=== PATIENT | female | born 1965 | race Caucasian/White ===

== ENCOUNTER 2017-04-03 17:32 | Inpatient (IN) | payer SELFPAY ==
[~2017-04-03 17:32] MED LIST: ISOVUE-370 76%-LOCM 1 ML ONE
[2017-04-03 18:23] LABS: INR-International Normal Ratio 1.2; Prothrombin Time 15.6 SEC (12.0-14.7)
[2017-04-03 18:24] LABS: PTT 43.7 SEC (22.9-36.1)
[2017-04-03 18:25] LABS: D-Dimer Test 1.6 *mcg/mL (0.27-0.43); Hemoglobin 14.2 g/dL (12.0-16.0); Mean Corpuscular Hemoglobin 34.3 pg (27.0-31.0); RBC Distribution Width 11.1 % (11.5-14.5); Red Blood Cell (RBC) Count 4.13 mill/uL (4.20-5.40); White Blood Cell (WBC) Count 10.1 thou/uL (4.8-10.8)
[2017-04-03 18:40] LABS: Band 43 % (5-11); Lymphocytes 2 % (21-51); MDiff Complete? YES; Mean Platelet Volume 8.1 fL (7.4-10.4); Metamyelocyte 1 % (0-0); Monocytes 2 % (0-10); Neutrophil 52 % (42-75); PLT Morphology Comment Appears Decreased; Platelet Count 111 thou/uL (130-400)
[2017-04-03 18:43] LABS: CKMB 0.7 ng/mL (0-6.6); Troponin I Less than 0.010 ng/mL (< 0.028)
[2017-04-03] MEDS ORDERED: Ondansetron HCl/PF 4 MG/2 ML Vial ONE (18:43)
[2017-04-03 18:58] LABS: ALT (SGPT) 41 U/L (8-55); AST (SGOT) 59 U/L (5-34); Albumin 4.1 g/dL (3.5-5.0); Alkaline Phosphatase 71 U/L (40-150); Anion Gap 17 mmol/L (10-20); BUN (Urea Nitrogen) 21 mg/dL (9.8-20.1); Bilirubin, Total 0.6 mg/dL (0.2-1.2); CK (CPK) 68 U/L (29-168); Calc. Creatinine Clearance 0 mL/min (70-130); Calcium 8.4 mg/dL (7.8-10.44); Carbon Dioxide 15 mmol/L (22-29); Chloride 100 mmol/L (98-107); Estimated GFR-MDRD 44; Globulin 2.9 g/dL (2.4-3.5); Glucose 144 mg/dL (70-105); Lipase 8 U/L (8-78); Magnesium 1.5 mg/dL (1.6-2.6); Potassium 3.1 mmol/L (3.5-5.1); Sodium 129 mmol/L (136-145)
--- NOTE | 2017-04-03 19:00 | RAD ---
PORTABLE CHEST ONE VIEW 04/03/17 at 6:46 p.m. HISTORY: Cough, fever, chest pain. FINDINGS: The heart size is normal. There is patchy air space disease in the left mid lung. No pneumothoraces o r pleural effusions are seen. IMPRESSION: Left sided pneumonia. RECOMMENDATION: A followup exam should be obtained after a course of antibiotics to exclude underlying mass. Code T POS: [facility]
[2017-04-03] MEDS ORDERED: Fentanyl 100 MCG/2 ML VIAL ONE ×2 (19:03→21:34)
[2017-04-03] MEDS ORDERED: Digoxin 0.5 MG/2 ML AMP ONE (19:31)
[2017-04-03] MEDS ORDERED: Magnesium Sulfate 2 GM/100 ML BAG ONE (19:41)
[2017-04-03] MEDS ORDERED: Phenylephrine 10 MG/NS 250 ML 250 ML ONE (20:03)
--- NOTE | 2017-04-03 21:29 | CT ---
CT PULMONARY ANGIOGRAM WITH IV CONTRAST AND 3D POSTPROCESSIN04/03/17 HISTORY: Cough, fever, chest pain. FINDINGS: There is good, vascular calcifications of the pulmonary artery vasculature without filling defects to suggest thromboembolism. The thoracic aorta is well opacified without aneurysmal dissection. No pleu ral or pericardial effusions are seen. There are patchy areas of consolidation in the left lower lobe . A 5 mm nodule is seen in the posterior segment of the right upper lobe. IMPRESSION: 1. No CT evidence of pulmonary embolism. 2. Left lower lobe pneumonia. 3. 5 mm right upper lobe nodule. RECOMMENDATION: A followup CT scan of the chest is recommended in three months. Discussed over the telephone with the ER physician, Dr. West Murillo at 8:46 p.m. POS: [facility]
[2017-04-03 21:41] LABS: Bilirubin Negative (Negative); Blood, Urine Negative (Negative); Clarity TURBID (Clear); Glucose, Urine (Dipstick) Negative (Negative); Leukocyte Small (Negative); Nitrite Negative (Negative); Protein, Urine (Dipstick) 30 mg/dL (Neg-Trace); Urobilinogen 0.2 mg/dL (0.2-1.0); pH, Urine 5.5 (5.0-9.0)
[2017-04-03 21:43] LABS: Pathc Cast-AUWi Flag 1.08 (0-2.49)
[2017-04-03 21:53] LABS: Bacteria/HPF 2+ HPF (None Seen); Hyaline Casts/LPF 0-3 HYALINE CAST LPF (0-3 Hyaline); Yeast-All Forms None Seen HPF (None Seen)
[2017-04-03 21:54] LABS: Amphetamine Not Detected (NotDetected); Barbiturates Screen Not Detected (NotDetected); Benzodiazepine Screen Not Detected (NotDetected); Cocaine Metabolite Screen Not Detected (NotDetected); Medtox Control Line Valid? VALID (VALID); Medtox Reader # READER 1; Methadone Not Detected (NotDetected); Methamphetamine Not Detected (NotDetected); Opiate Screen Not Detected (NotDetected); Oxycodone Screen Not Detected (NotDetected); Phencyclidine (PCP) Not Detected (NotDetected); THC/Cannabinoid Screen Not Detected (NotDetected); Tricyclic Screen Not Detected (NotDetected)
[2017-04-03] MEDS ORDERED: Oseltamivir 75 MG CAP PO SCH (22:00)
[2017-04-03] MEDS ORDERED: Piperacillin-Tazo-Dextrose,Iso 3.375 GM in Premix Bag 1 BAG IVPB SCH (22:15)
--- NOTE | 2017-04-03 22:56 | RAD ---
PORTABLE CHEST ONE VIEW 04/03/17 at 10 p.m. HISTORY: Pneumonia, central line placement. FINDINGS/IMPRESSION: There is a right internal jugular central line with tip in the projection of the SVC. No pneumothorax is seen. The heart size is normal. There is consolidation in the left lower lobe consistent with pne umonia. POS: [facility]
[2017-04-03] MEDS ORDERED: Norepinephrine 8 MG/0.9% NS 250 ML ONE (23:05)
[2017-04-03 23:31] LABS: Troponin I 0.016 ng/mL (< 0.028)
[2017-04-03] MEDS ORDERED: Acetaminophen 500 MG TAB ONE (23:49)
[2017-04-04] MEDS ORDERED: Bisacodyl 5 MG TAB PO PRN (00:14)
[2017-04-04] MEDS ORDERED: hydrALAZINE 20 MG/ML VIAL SLOW IVP PRN (00:14)
[2017-04-04] MEDS ORDERED: Lacri-Lube Opth Oint 3.5 GM TUBE EA EYE PRN (00:14)
[2017-04-04] MEDS ORDERED: Norepinephrine 8 MG/0.9% NS 250 ML IVPB PRN (00:14)
[2017-04-04] MEDS ORDERED: CCU Electrolyte Replacement 1 EACH IVPB ONE (00:14)
[2017-04-04] MEDS ORDERED: CCU Electrolyte Replacement 1 EACH FS ONE (00:14)
[2017-04-04] MEDS ORDERED: Nitroglycerin 0.4 MG TAB (25 Tab Bottle) SL PRN (00:14)
[2017-04-04] MEDS ORDERED: Loratadine 10 MG TAB PO PRN (00:14)
[2017-04-04] MEDS ORDERED: Mag-Al 1200 mg/1200 mg/30 ML UDCUP PO PRN (00:14)
[2017-04-04] MEDS ORDERED: cloNIDine 0.1 MG TAB PO PRN (00:14)
[2017-04-04] MEDS ORDERED: Potassium Chloride 40 MEQ in Sodium Chloride 0.9% 250 ML 250 ML IVPB PRN (00:22)
[2017-04-04] MEDS ORDERED: Potassium Phosphate 15 MMOL in Sodium Chloride 0.9% 250 ML 250 ML IV PRN (00:22)
[2017-04-04] MEDS ORDERED: CCU ELECTROLYTE REPLACEMENT PROTOCOL FS PRN (00:22)
[2017-04-04] MEDS ORDERED: Potassium Phosphate 9 MMOL in Sodium Chloride 0.9% 100 ML IVPB PRN (00:22)
[2017-04-04] MEDS ORDERED: Potassium Phosphate 12 MMOL in Sodium Chloride 0.9% 250 ML 250 ML IV PRN (00:22)
[2017-04-04] MEDS ORDERED: Magnesium 2 GM/NS 0.9% 100 ML 2 GM in Premix Bag 1 BAG IVPB PRN (00:22)
[2017-04-04] MEDS ORDERED: Potassium Chloride 40 MEQ in Premix Bag 1 BAG IVPB PRN (00:22)
[2017-04-04] MEDS ORDERED: Magnesium Oxide 400 MG TAB PO PRN ×2 (00:22)
[2017-04-04] MEDS: Ondansetron HCl/PF 4 MG/2 ML Vial IVP PRN (01:10)
[2017-04-04] MEDS: Ibuprofen 200 MG TAB PO PRN ×2 (01:37→09:48)
[2017-04-04] MEDS: Sodium Chloride 0.9% 1,000 ML IV SCH ×2 (02:09→11:38)
[2017-04-04] MEDS: traMADol HCl 50 MG TAB PO PRN ×3 (02:26→13:56)
[2017-04-04 03:34] LABS: Band 60 % (5-11); Hemoglobin 10.7 g/dL (12.0-16.0); Lymphocytes 1 % (21-51); MDiff Complete? YES; Mean Corpuscular HGB CONC 34.9 g/dL (32.0-36.0); Mean Corpuscular Hemoglobin 35.4 pg (27.0-31.0); Mean Platelet Volume 8.1 fL (7.4-10.4); Metamyelocyte 1 % (0-0); Monocytes 2 % (0-10); Neutrophil 35 % (42-75); Platelet Count 84 thou/uL (130-400); Reactive Lymphocytes 1 % (0-10); Red Blood Cell (RBC) Count 3.04 mill/uL (4.20-5.40)
[2017-04-04 03:52] LABS: Troponin I 0.028 ng/mL (< 0.028)
[2017-04-04 03:55] LABS: ALT (SGPT) 38 U/L (8-55); AST (SGOT) 56 U/L (5-34); Albumin 2.7 g/dL (3.5-5.0); Alkaline Phosphatase 47 U/L (40-150); Anion Gap 11 mmol/L (10-20); BUN (Urea Nitrogen) 15 mg/dL (9.8-20.1); Bilirubin, Total 0.8 mg/dL (0.2-1.2); Calc. Creatinine Clearance 60 mL/min (70-130); Calcium 6.9 mg/dL (7.8-10.44); Carbon Dioxide 13 mmol/L (22-29); Chloride 111 mmol/L (98-107); Estimated GFR-MDRD 71; Globulin 1.9 g/dL (2.4-3.5); Glucose 131 mg/dL (70-105); Potassium 2.7 mmol/L (3.5-5.1); Protein, Total 4.6 g/dL (6.0-8.3); Sodium 132 mmol/L (136-145)
--- NOTE | 2017-04-04 04:08 | HP ---
DATE OF ADMISSION: 04/03/2017 PRIMARY CARE PHYSICIAN: Out of town. CHIEF COMPLAINT: Shortness of breath, cough, fever, and palpitations. HISTORY OF PRESENT ILLNESS: Ms. Arevalo is a 52-year-old female with past medical history of seizure disorder, who presented to the emergency room with the above-mentioned complaint. History is mainly obtained by the patient herself who is a rather poor historian, is also having some nausea and is dif ficult to provide much history. Nevertheless, the patient presented to the ER for complaints of flu-like symptoms for the last few da ys. She started to have fever, chills, and cough at home. She had [place] [facility] [place] She started to have shortness of breath and palpitations yesterday, so decided to come to the ER . In the emergency room upon presentation, she was found to be in tachycardia with pulse of 156. EKG c onfirmed atrial flutter. ER physician decided to cardiovert her and she got total of 4 shocks in the emergency room, which did not help with her atrial flutter. Eventually, she received Cardizem and d igoxin, which helped convert her to sinus tachycardia. She had become hypotensive after the Cardizem and remained hypotensive despite multiple IV fluid boluses. Further evaluation included a chest x-ray which showed left-sided pneumonia. Because of presentation with dyspnea and tachycardia, she had a D-Dimer drawn, which was elevated. This prompted a CT angio , which was done and was negative for pulmonary embolism. It was also consistent with left lower lob e pneumonia. She then received multiple broad-spectrum IV antibiotics as well as Tamiflu. After sta bilization, she is being admitted to the critical care unit for septic shock and new onset of atrial flutter. A central line has been placed by the emergency room physician. PAST MEDICAL HISTORY: Grand mal seizures. PAST SURGICAL HISTORY: section. PSYCHIATRIC HISTORY: Anxiety. SOCIAL HISTORY: Smokes 3-4 cigarettes daily. No history of drug, tobacco, or alcohol use currently. She has history of cocaine abuse in the past, none currently. FAMILY HISTORY: Significant for coronary artery disease in her father and grandparents. One of her grandparents also had throat cancer. PSYCHIATRIC HISTORY: Anxiety. ALLERGIES: SULFONAMIDES. CURRENT MEDICATIONS: Dexilant 60 mg daily and Topamax 200 mg p.o. b.i.d. REVIEW OF SYSTEMS: The following complete review of systems was negative, except for those mentioned in the history and physical: Constitutional: Weight loss or gain, ability to conduct usual activities. Skin: Rash, itching. Eyes: Double vision, pain. ENT/Mouth: Nose bleeding, neck stiffness, pain, tenderness. Cardiovascular: Palpitations, dyspnea on exertion, orthopnea. Respiratory: Shortness of breath, wheezing, cough, hemoptysis, fever, or night sweats. Gastrointestinal: Poor appetite, abdominal pain, heartburn, nausea, vomiting, constipation, or diarr hea. Genitourinary: Urgency, frequency, dysuria, nocturia. Musculoskeletal: Pain, swelling. Neurologic/Psychiatric: Anxiety, depression. Allergy/Immunologic: Skin rash, bleeding tendency. PHYSICAL EXAMINATION: VITAL SIGNS: Most recent vital signs pulse of 112, respirations 20, saturating 96% on room air, bloo d pressure upon presentation of 104/83, temperature 98. GENERAL: The patient appears uncomfortable and gets easily winded with conversation. She is nauseou s and dry heaving as well as coughing. HEENT: Mucous membrane is moist and pink. No oropharyngeal exudate or erythema. Head is normocepha lic, atraumatic. Pupils are equal, reactive to light and accommodation. Extraocular movements intac t. NECK: Supple without any lymphadenopathy, JVD, or bruit. CHEST: Evaluation showed coarse breath sounds at bases without any significant wheezes or crackles. Breath sounds are somewhat diminished on the left base. CARDIOVASCULAR: Rate and rhythm is tachycardic and regular without any significant murmurs. ABDOMEN: Soft, nontender, nondistended with positive bowel sounds. EXTREMITIES: Free of any cyanosis, clubbing, or edema. NEUROLOGIC: Nonfocal. SKIN: Free of any rashes or bruises, feel warm and dry to touch. PSYCHIATRIC: Some anxiety noticed. LABORATORY DATA: A 12-lead EKG by my review shows atrial flutter with variable AV block at heart rat e of 167 beats per minute. Chest x-ray by my review shows left-sided pneumonia. CT scan of the ches t with angiogram is negative for any pulmonary embolism. She has a 5-mm right upper lobe nodule and left lower lobe pneumonia. CBC shows WBCs 10.1 with 43% bands, hemoglobin and hematocrit are stable, platelet count of 111. D-Dimer 1.60. Serum chemistries show sodium of 129, potassium 3.1, bicarbon ate 15, BUN 21, creatinine 1.28, magnesium 1.5. Lactic acid 1.4. BNP 110. Cardiac enzymes, troponi n less than 0.010 with normal CK-MB. TSH elevated at 7.6. Urinalysis showed 30+ protein, small leuk ocyte esterase, wbcs, and +2 bacteria. Urine drug screen is negative. IMPRESSION AND PLAN: 1. Septic shock. The patient will be admitted to the critical care unit with sepsis protocol. She will be continued on IV fluids and broad-spectrum IV antibiotics, namely vancomycin, Zosyn, and levof loxacin. We will consult Pulmonary Critical Care medicine for further evaluation. Urine culture and blood cultures have been drawn and we will follow the results. Respiratory viral pathogen has been sent. She will be empirically covered with Tamiflu b.i.d. for now. Strict I's and O's will be monit ored. We will provide her with Levophed as needed to keep MAP above 65. 2. New onset of atrial flutter with rapid ventricular response. This is likely secondary to ongoing severe sepsis. The patient has sinus tachycardia now. They will obtain a transthoracic echocardiog elissa and consult Cardiology in the morning. We will start her on calcium-channel xavier orally for n ow and hold if her blood pressure tends to lower with Cardizem. 3. Sepsis likely secondary to pneumonia. She also seems to have a urinary tract infection. We will continue empiric broad-spectrum IV antibiotic and follow the culture results. 4. Hyponatremia likely secondary to dehydration from ongoing sepsis. She will be gently resuscitate d with IV fluids. 5. Non-anion gap metabolic acidosis secondary to dehydration and sepsis. We will continue IV fluids and recheck labs in the morning. 6. Acute renal insufficiency once again secondary to sepsis. We will continue her on intravenous fl uids and recheck in the morning. Avoid any nephrotoxic medications. 7. Hypomagnesemia. We will replace and recheck. 8. Hypokalemia. We will replace and recheck per the CCU protocol. 9. Respiratory distress secondary to pneumonia. Continue nebulizers and oxygen as needed. Add Muci nex and incentive spirometry as well. Continue symptomatic and supportive care. 10. History of seizure disorder. We will restart her Topamax for now. She is currently seizure leticia e. 11. Deep venous thrombosis and gastrointestinal prophylaxis. 12. Code status: FULL CODE. Discussed with the patient. DISPOSITION: Ms. Arevalo is currently being admitted to critical care unit for severe sepsis due to p neumonia and possibly urinary tract infection and septic shock as well as atrial flutter with rapid v entricular response. She is currently critically ill. Total critical care time spent in the care of this patient is 40 minutes.
[2017-04-04] MEDS: Potassium Chloride 20 MEQ TAB PO PRN ×3 (04:17→09:03)
[2017-04-04] MEDS: Piperacillin/Tazobactam 4.5 GM in Sodium Chloride 0.9% 100 ML IVPB SCH ×4 (04:38→22:07)
[2017-04-04 06:30] LABS: Free T4 (Free Thyroxine) 1.12 ng/dL (0.70-1.48)
[2017-04-04] MEDS ORDERED: SUMAtriptan Succinate 50 MG TAB PO PRN (08:20)
[2017-04-04 08:55] LABS: Potassium 3.3 mmol/L (3.5-5.1)
[2017-04-04] MEDS ORDERED: Topiramate 100 MG TAB PO SCH ×2 (09:00→09:30)
[2017-04-04] MEDS: guaiFENesin ER 600 MG TAB PO SCH ×2 (09:02→20:25)
[2017-04-04] MEDS: Famotidine 20 MG TAB PO SCH ×2 (09:02→09:08)
[2017-04-04] MEDS: Oseltamivir 75 MG CAP PO SCH ×2 (09:03→20:25)
[2017-04-04] MEDS: Acetaminophen 325 MG/10.15 ML UDCUP PO PRN (09:48)
--- NOTE | 2017-04-04 10:14 | CON ---
DATE OF CONSULTATION: 04/04/2017 CONSULTING PHYSICIAN: Jada Strickland MD REASON FOR CONSULTATION: Septic shock. HISTORY OF PRESENT ILLNESS: This is a 52-year-old female, who has been sick since Sunday. She has had a headache, cough, and congestion. She presented to the ER last night with low blood pressure. She had atrial flutter and required for cardioversions. She required Levophed because of the hypote nsion. She was diagnosed with left lower lobe pneumonia. So far, flu swab has yet to be done from w hat I can see. PAST MEDICAL HISTORY: Grand mal seizures PAST SURGICAL HISTORY: She has had two C-sections. PSYCHIATRIC HISTORY: Remarkable for anxiety. SOCIAL HISTORY: She smokes 3-4 cigarettes per day. She drinks vodka occasionally and has had a prob mansoor with alcohol consumption in the past. She used cocaine in the remote past. She is currently une mployed. She has a fiance. FAMILY MEDICAL HISTORY: Remarkable for coronary artery disease and throat cancer. ALLERGIES: SULFA DRUGS. MEDICATIONS: Prior to admission Dexilant and Topamax. REVIEW OF SYSTEMS: Twelve-point review of systems otherwise negative. PHYSICAL EXAMINATION: VITAL SIGNS: Temperature 98.8 with a T-max of 101.7, pulse 101, blood pressure 95/63. She is curren tly on Levophed at 8 mcg per minute. GENERAL: She is in no acute distress. She is complaining of a headache. HEENT: Pupils react. Sclerae anicteric. Oropharynx clear. NECK: Without adenopathy, JVD, or bruits. LUNGS: She has crackles in the left base with some egophony. Right side is clear. CARDIAC: S1 and S2, slightly tachycardic without murmur. ABDOMEN: Soft, nontender, nondistended. EXTREMITIES: No clubbing, cyanosis, or edema. NEUROLOGIC: She moves all 4 extremities without difficulty. SKIN: Shows no rashes, bruising, or jaundice. PSYCHIATRIC: Shows normal affect. LABORATORY AND X-RAY FINDINGS: Tox screen was negative. Urinalysis showed 7-10 white blood cells. Sodium 132, potassium 2.7, chloride 111, CO2 of 13, anion gap 11, BUN 15, creatinine 0.8, glucose 131 . Lactate 1.3. Troponin was 0.28. Albumin 2.7. INR 1.2. White blood cell count 7, hemoglobin 10, hematocrit 30.8, platelet count 84. Chest x-ray and CT scan showed left lower lobe infiltrate. ASSESSMENT: 1. Left lower lobe pneumonia. 2. Septic shock. 3. Paroxysmal atrial flutter. 4. Alcohol abuse. 5. Thrombocytopenia. 6. Non-anion gap metabolic acidosis. PLAN: 1. Continue supportive care with IV fluids, IV antibiotics, and Levophed. 2. Check flu swab. 3. We would withhold in the antiplatelet therapy at this time due to her thrombocytopenia.
[2017-04-04] MEDS: Vancomycin HCl 750 MG in Sodium Chloride 0.9% 250 ML 250 ML IVPB SCH (13:36)
--- NOTE | 2017-04-04 15:04 | CON ---
DATE OF CONSULTATION: 04/04/2017 REASON FOR CONSULTATION: Atrial flutter. HISTORY OF PRESENT ILLNESS: Ms. Riddhi Arevalo is a pleasant 52-year-old woman who came to the [facility] with shortness of breath, cough, fever, and palpitations, found to have pneumonia and then subseq uently found to have atrial flutter. The patient was given several cardioversions and ultimately converted to sinus tachycardia. Chest x- ray showed left-sided pneumonia. She has had a CT angiogram which was negative. PAST MEDICAL HISTORY: Seizure. PAST SURGICAL HISTORY: section. PSYCHIATRIC HISTORY: Anxiety. SOCIAL HISTORY: Smokes 3-4 cigarettes per day. No drug or alcohol use and remote history of cocaine recently and her urine drug screen was negative. FAMILY HISTORY: Significant for coronary disease in her father and grandparents. ALLERGIES: SULFA. MEDICATIONS: Dexilant and Topamax initially, now she is on pressors and diltiazem. REVIEW OF SYSTEMS: Constitutional: No significant weight gain or loss. Vision: No changes. Heari ng: No changes. Pulmonary: Positive for shortness of breath. Cardiac: No chest pain. Positive f or palpitations. Gastrointestinal: No nausea, vomiting, diarrhea. Skin: No rashes. Neurologic: No unilateral weakness or numbness. Psychiatric: No unusual depression or anxiety. Hematologic: N o unusual bruising. Genitourinary: No burning with urination. PHYSICAL EXAMINATION: GENERAL: A pleasant 52-year-old woman sitting in the chair, feeling better. VITAL SIGNS: Blood pressure is 95/61, pulse now is 90 and sinus. HEENT: Eyes, sclerae nonicteric. Mouth mucous membranes moist. NECK: Supple, no lymphadenopathy. CARDIOVASCULAR: Normal S1, normal S2. There is no murmur, rub or gallop. LABORATORY DATA AND X-RAY FINDINGS: Chest x-ray reveals a left lower lobe infiltrate. Initial labor atory: Potassium was very low at 2.7, the most recently was 3.3, which she received additional potas sium, after that the magnesium was 1.5. She has received magnesium. Echocardiogram is pending. EKG , no sinus rhythm. Her initial heart rate was 167. It looked like it was likely atrial flutter. ASSESSMENT: 1. Pneumonia. 2. Atrial flutter, initial heart rate 167. PLAN: 1. She is on low dose diltiazem. 2. Treating the pneumonia infection as well as sepsis. 3. Echocardiogram is pending.
[2017-04-04] MEDS: Ketorolac Tromethamine 30 MG/ML VIAL IVP PRN ×2 (15:34→22:07)
--- NOTE | 2017-04-04 16:28 | PDOC.PN ---
- Subjective Encounter Start Date: 04/04/17 Encounter Start Time: 15:26 Patient is seen today, alert and oriented. C/o severe headache 01/02, No releif with Imitrex. No SOB or chest pain. - Objective MAR Reviewed: Yes Vital Signs & Weight: Vital Signs (12 hours) Temp Pulse Resp Pulse Ox 04/04/17 14:07 93 20 97 04/04/17 12:00 98.2 F 04/04/17 07:54 98.8 F 94 19 94 L 04/04/17 07:45 94 L 04/04/17 07:44 94 22 H 94 L Weight Admit Weight 106 lb 7.732 oz Weight 106 lb 7.732 oz Most Recent Monitor Data Heart Rate from ECG 95 NIBP 85/54 NIBP BP-Mean 62 Respiration from ECG 21 SpO2 94 I&O: 04/03/17 04/04/17 04/05/17 06:59 06:59 06:59 Intake Total 1191 2100 Output Total 1350 2085 Balance -159 15 Result Diagrams: 04/04/17 02:46 04/04/17 08:35 Radiology Reviewed by me: Yes EKG Reviewed by me: Yes Phys Exam - Physical Examination HEENT: PERRLA, moist MMs Neck: no nodes, no JVD Respiratory: no wheezing, no rales Cardiovascular: RRR, no significant murmur Gastrointestinal: soft, non-tender Dx/Plan (1) Acute headache Code(s): R51 - HEADACHE Status: Acute Qualifiers: Intractability: intractable (2) Sepsis Code(s): A41.9 - SEPSIS, UNSPECIFIED ORGANISM Status: Acute Qualifiers: Sepsis type: sepsis due to unspecified organism Qualified Code(s): A41.9 - Sepsis, unspecified organism (3) Atrial flutter Code(s): I48.92 - UNSPECIFIED ATRIAL FLUTTER Status: Acute Qualifiers: Atrial flutter type: typical Qualified Code(s): I48.3 - Typical atrial flutter (4) Pneumonia Code(s): J18.9 - PNEUMONIA, UNSPECIFIED ORGANISM Status: Acute Qualifiers: Pneumonia type: due to unspecified organism - Plan cont current plan of care, continue antibiotics, PT/OT, respiratory therapy, incentive spirometry, DVT proph w/lovenox Sepsis , patient is on broad spectrum ABX per Pulmonary , will continue to Follow. Atrial Fluter, rate is controlled with Cardizem, Continue with Cardiology recommedations Headache is intractable not responding to imitrex, will do Toradol and Pt has signs suggestive left front Sinusisitis, will do FLonase and Afrin. DVT prophylaxis: Lovenox anticoagulation Hypotension: from sepsis, pt is on IV fluids. will continue to Monitor in ICU. - Discharge Day Encounter end time: 16:30 Review of Systems - Review of Systems Constitutional: negative: fever, chills, sweats, weakness, malaise, other Eyes: negative: Pain, Vision Change, Conjunctivae Inflammation, Eyelid Inflammation, Redness, Other ENT: Nose Congestion. negative: Ear Pain, Ear Discharge, Nose Pain, Nose Discharge, Mouth Pain, Mouth Swelling, Throat Pain, Throat Swelling, Other Respiratory: negative: Cough, Dry, Shortness of Breath, Hemoptysis, SOB with Excertion, Pleuritic Pain, Sputum, Wheezing Cardiovascular: negative: chest pain, palpitations, orthopnea, paroxysmal nocturnal dyspnea, edema, light headedness, other Gastrointestinal: negative: Nausea, Vomiting, Abdominal Pain, Diarrhea, Constipation, Melena, Hematochezia, Other Genitourinary: negative: Dysuria, Frequency, Incontinence, Hematuria, Retention , Other Musculoskeletal: negative: Neck Pain, Shoulder Pain, Arm Pain, Back Pain, Hand Pain, Leg Pain, Foot Pain, Other Skin: negative: Rash, Lesions, Errol, Bruising, Other Neurological: Other (headache, neck stiffness). negative: Weakness, Numbness, Incoordination, Change in Speech, Confusion, Seizures - Medications/Allergies Allergies/Adverse Reactions: Allergies Allergy/AdvReac Type Severity Reaction Status Date / Time Sulfa (Sulfonamide Allergy Verified 04/03/17 21:50 Antibiotics) Medications: Current Medications Acetaminophen (Tylenol Elixir) 650 mg PO Q6H PRN PRN Reason: Fever > 101 or Mild Pain Last Admin: 04/04/17 09:48 Dose: 650 mg Hydrocodone Bitart/Acetaminophen ([place] 5/325) 1 tab PO Q6H PRN PRN Reason: Severe Pain (7-10) Al Hydroxide/Mg Hydroxide (Maalox) 30 ml PO Q8H PRN PRN Reason: Indigestion Albuterol/Ipratropium (Duoneb) 3 ml NEB Q6H PRN PRN Reason: SOB &/or Wheezing Albuterol/Ipratropium (Duoneb) 3 ml NEB [id number] [facility] Last Admin: 04/04/17 14:07 Dose: 3 ml Benzonatate (Tessalon) 100 mg PO Q4H PRN PRN Reason: Cough Bisacodyl (Dulcolax) 10 mg PO DAILYPRN PRN PRN Reason: Constipation Clonidine (Catapres) 0.1 mg PO Q4H PRN PRN Reason: Systolic BP > 180 Diltiazem HCl (Cardizem) 30 mg PO ACHS [facility] Last Admin: 04/04/17 11:40 Dose: 30 mg Guaifenesin (Robitussin Sf) 200 mg PO Q4H PRN PRN Reason: Cough Guaifenesin (Mucinex) 1,200 mg PO Q12HR [facility] Last Admin: 04/04/17 09:02 Dose: 1,200 mg Hydralazine HCl (Apresoline) 10 mg SLOW IVP Q4H PRN PRN Reason: Systolic BP > 180 Levofloxacin 750 mg/ Device 150 mls @ 100 mls/hr IVPB 0100 [facility] Last Admin: 04/04/17 01:43 Dose: 150 mls Norepinephrine Bitartrate (Levophed) 250 mls @ 0 mls/hr IVPB PRN PRN; Protocol ; Titrate PRN Reason: To maintain MAP > 65 Sodium Chloride (Normal Saline 0.9%) 1,000 mls @ 75 mls/hr IV .[id number] [facility] Last Admin: 04/04/17 11:38 Dose: 1,000 mls Piperacillin Sod/Tazobactam (Sod 4.5 gm/ Sodium Chloride) 100 mls @ 200 mls/hr IVPB 0400,1000,1600,2200 [facility] Last Admin: 04/04/17 15:37 Dose: 100 mls Potassium Chloride 40 meq/ (Sodium Chloride) 270 mls @ 135 mls/hr IVPB ASDIR PRN PRN Reason: FOR SERUM K+ 2.5 - 3.5 Potassium Chloride 40 meq/ (Device) 100 mls @ 50 mls/hr IVPB ASDIR PRN PRN Reason: FOR SERUM K+ 2.5 - 3.5 Magnesium Sulfate 1 gm/ Sodium (Chloride) 102 mls @ 102 mls/hr IV PRN PRN PRN Reason: MAG LEVEL 1.4 - 2.0 Magnesium Sulfate 2 gm/ Device 100 mls @ 100 mls/hr IVPB ASDIR PRN PRN Reason: MAGNESIUM < 1.4 Potassium Phosphate 9 mmol/ (Sodium Chloride) 103 mls @ 25.75 mls/hr IVPB ASDIR PRN PRN Reason: Phosphate 1.0-1.8 Potassium Phosphate 12 mmol/ (Sodium Chloride) 254 mls @ 63.5 mls/hr IV ASDIR PRN PRN Reason: Serum phosphate 0.5-0.9 Potassium Phosphate 15 mmol/ (Sodium Chloride) 255 mls @ 63.75 mls/hr IV ASDIR PRN PRN Reason: Serum Phos < 0.5 Vancomycin HCl 750 mg/ Sodium (Chloride) 250 mls @ 166.67 mls/hr IVPB 0100, 1300 [facility] Last Admin: 04/04/17 13:36 Dose: 250 mls Ibuprofen (Motrin) 200 mg PO Q6H PRN PRN Reason: FOR FEVER Last Admin: 04/04/17 09:48 Dose: 200 mg Ketorolac Tromethamine (Toradol) 30 mg IVP Q6H PRN PRN Reason: Moderate Pain (4-6) Stop: 04/09/17 15:25 Last Admin: 04/04/17 15:34 Dose: 30 mg Loratadine (Claritin) 10 mg PO DAILYPRN PRN PRN Reason: Sinus Symptoms Magnesium Hydroxide (Milk Of Magnesium) 30 ml PO Q8H PRN PRN Reason: Constipation Magnesium Oxide (Magnesium Oxide) 400 mg PO BIDPRN PRN PRN Reason: FOR SERUM MAG 1.4 - 2.0 Magnesium Oxide (Magnesium Oxide) 800 mg PO PRN PRN PRN Reason: FOR SERUM MAG < 1.4 Mineral Oil/White Petrolatum (Lacri-Lube Ointment) 0 gm EA EYE PRN PRN PRN Reason: Dry Eyes Miscellaneous Medication (Phos-Nak) 1 pkt PO TIDPRN PRN PRN Reason: FOR PHOS LEVEL 1.0 - 1.8 Miscellaneous Medication (Phos-Nak) 2 pkt PO TIDPRN PRN PRN Reason: FOR PHOS LEVEL 0.5 - 1.0 Nitroglycerin (Nitrostat) 0.4 mg SL Q5MIN PRN PRN Reason: Chest Pain Ccu Electrolyte (Replacement Protocol) 0 each FS PRN PRN PRN Reason: FOR ELECTROLYTE REPLACEMENT Ondansetron HCl (Zofran) 4 mg IVP Q6H PRN PRN Reason: Nausea/Vomiting Last Admin: 04/04/17 01:10 Dose: 4 mg Oseltamivir Phosphate (Tamiflu) 75 mg PO BID [facility] Stop: 04/08/17 21:01 Last Admin: 04/04/17 09:03 Dose: 75 mg Pantoprazole Sodium (Protonix) 40 mg PO DAILY [facility] Last Admin: 04/04/17 11:41 Dose: 40 mg Potassium Chloride (K-Dur) 40 meq PO ASDIR PRN PRN Reason: FOR SERUM K+ 2.5 - 3.5 Last Admin: 04/04/17 09:03 Dose: 40 meq Potassium Chloride (Klor-Con) 40 meq PER TUBE ASDIR PRN PRN Reason: FOR SERUM K+ 2.5-3.5 Sumatriptan Succinate (Imitrex) 50 mg PO DAILYPRN PRN PRN Reason: Migraine Headache Last Admin: 04/04/17 10:53 Dose: 50 mg Topiramate (Topamax) 400 mg PO BID [facility] Tramadol HCl (Ultram) 50 mg PO Q4H PRN PRN Reason: Moderate Pain (4-6) Last Admin: 04/04/17 13:56 Dose: 50 mg
[2017-04-04] MEDS: HYDROcodone/Acetaminophen 5/325 mg Tablet PO PRN (16:34)
[2017-04-04] MEDS: Oxymetazoline HCl 0.05% ( 15 ML ) NASAL SCH (20:26)
[2017-04-04] MEDS: Topiramate 100 MG TAB PO SCH (20:30)
[2017-04-04] MEDS ORDERED: Vancomycin HCl 750 MG in Sodium Chloride 0.9% 250 ML 250 ML IVPB SCH (21:00)
[2017-04-04] MEDS ORDERED: Piperacillin/Tazobactam 4.5 GM in Sodium Chloride 0.9% 100 ML IVPB SCH (22:00)
[2017-04-05] MEDS: Vancomycin HCl 750 MG in Sodium Chloride 0.9% 250 ML 250 ML IVPB SCH (00:16)
[2017-04-05] MEDS: HYDROcodone/Acetaminophen 5/325 mg Tablet PO PRN ×4 (00:19→22:48)
[2017-04-05] MEDS: Sodium Chloride 0.9% 1,000 ML IV SCH (04:02)
[2017-04-05] MEDS: Piperacillin/Tazobactam 4.5 GM in Sodium Chloride 0.9% 100 ML IVPB SCH ×4 (04:02→22:13)
[2017-04-05] MEDS: Ketorolac Tromethamine 30 MG/ML VIAL IVP PRN ×3 (04:07→18:05)
[2017-04-05 06:12] LABS: Band 38 % (5-11); Hemoglobin 9.6 g/dL (12.0-16.0); Lymphocytes 6 % (21-51); MDiff Complete? YES; Mean Corpuscular HGB CONC 33.5 g/dL (32.0-36.0); Mean Corpuscular Hemoglobin 34.3 pg (27.0-31.0); Mean Platelet Volume 7.8 fL (7.4-10.4); Metamyelocyte 1 % (0-0); Neutrophil 54 % (42-75); PLT Morphology Comment Appears Decreased; Platelet Count 74 thou/uL (130-400); RBC Distribution Width 11.2 % (11.5-14.5); White Blood Cell (WBC) Count 4.7 thou/uL (4.8-10.8)
[2017-04-05 06:14] LABS: Anion Gap 8 mmol/L (10-20); BUN (Urea Nitrogen) 8 mg/dL (9.8-20.1); Calc. Creatinine Clearance 85 mL/min (70-130); Calcium 8.1 mg/dL (7.8-10.44); Carbon Dioxide 17 mmol/L (22-29); Chloride 116 mmol/L (98-107); Estimated GFR-MDRD Greater than 90; Glucose 90 mg/dL (70-105); Potassium 3.1 mmol/L (3.5-5.1); Sodium 138 mmol/L (136-145)
[2017-04-05] MEDS: Potassium Chloride 20 MEQ TAB PO PRN (08:11)
[2017-04-05] MEDS: Oseltamivir 75 MG CAP PO SCH (08:12)
[2017-04-05] MEDS: Fluticasone Propionate Nasal Spray 16 gm Bottle NASAL SCH ×2 (08:12→21:58)
[2017-04-05] MEDS: Oxymetazoline HCl 0.05% ( 15 ML ) NASAL SCH ×2 (09:13→21:59)
[2017-04-05] MEDS: Topiramate 100 MG TAB PO SCH ×2 (09:13→22:01)
[2017-04-05] MEDS: guaiFENesin ER 600 MG TAB PO SCH ×2 (09:20→22:02)
--- NOTE | 2017-04-05 09:38 | PRG ---
DATE OF SERVICE: 04/05/2017 The patient has been weaned off the Levophed this morning. She is sitting up in a chair. She says h er headache is better. PHYSICAL EXAMINATION: VITAL SIGNS: Temperature 98.8, pulse 84, blood pressure 100/68. 24 hour intake 6551, output 5485. HEENT: Unremarkable. NECK: No JVD. LUNGS: Few crackles left base. CARDIOVASCULAR: S1, S2 regular. ABDOMEN: Soft, nontender. EXTREMITIES: No edema. Micro shows no growth to date, her flu swabs were negative. White blood cell count 4.7, hematocrit 2 8.7, platelet count 74. Sodium 138, potassium 3.1, chloride 116, CO2 17, BUN 8, creatinine 0.6, gluc ose 90. ASSESSMENT: 1. Community-acquired pneumonia. 2. Septic shock which is better. 3. Paroxysmal atrial flutter 4. History of alcohol abuse. 5. Thrombocytopenia. 6. Non-anion gap metabolic acidosis which is better. PLAN: 1. Hopefully, she can stay off of Levophed. If her blood pressure holds well this afternoon, she ca n probably be transferred out to the floor. 2. Potassium is being replaced. 3. Continue IV fluids 75 mL per hour. 4. Continue broad spectrum IV antibiotics with consideration of consolidating these tomorrow if cult ures remain negative. 5. Discontinue the Tamiflu since the flu swabs were negative.
--- NOTE | 2017-04-05 14:59 | PDOC.PN ---
- Subjective Encounter Start Date: 04/05/17 Encounter Start Time: 11:30 Patient is seen today, alert and oriented. her headache is improved. She countinuos to have coug but not bringing up much. - Objective MAR Reviewed: Yes Vital Signs & Weight: Vital Signs (12 hours) Temp Pulse Pulse Resp BP Pulse Ox Pulse Ox 04/05/17 13:03 98 22 H 04/05/17 11:56 98.7 F 04/05/17 09:23 74 107/66 99 04/05/17 07:56 90 23 H 04/05/17 07:41 98.8 F 89 21 H 95 04/05/17 04:00 98.6 F Pulse Ox 04/05/17 13:03 04/05/17 11:56 04/05/17 09:23 98 04/05/17 07:56 04/05/17 07:41 04/05/17 04:00 Weight Admit Weight 106 lb 7.732 oz Weight 110 lb 14.28 oz Most Recent Monitor Data Heart Rate from ECG 102 NIBP 97/60 NIBP BP-Mean 75 Respiration from ECG 22 SpO2 92 I&O: 04/04/17 04/05/17 04/06/17 06:59 06:59 06:59 Intake Total 1191 6555.1 1288.8 Output Total 1350 5485 675 Balance -159 1070.1 613.8 Result Diagrams: 04/05/17 05:15 04/05/17 05:15 Radiology Reviewed by me: Yes Phys Exam - Physical Examination HEENT: PERRLA, moist MMs Neck: no nodes, no JVD Respiratory: wheezing present Cardiovascular: RRR, no significant murmur Gastrointestinal: soft, non-tender Musculoskeletal: no edema, pulses present Neurological: non-focal, normal sensation Lymphatic: no nodes Dx/Plan (1) Acute headache Code(s): R51 - HEADACHE Status: Acute Qualifiers: Intractability: intractable (2) Sepsis Code(s): A41.9 - SEPSIS, UNSPECIFIED ORGANISM Status: Acute Qualifiers: Sepsis type: sepsis due to unspecified organism Qualified Code(s): A41.9 - Sepsis, unspecified organism (3) Atrial flutter Code(s): I48.92 - UNSPECIFIED ATRIAL FLUTTER Status: Acute Qualifiers: Atrial flutter type: typical Qualified Code(s): I48.3 - Typical atrial flutter (4) Pneumonia Code(s): J18.9 - PNEUMONIA, UNSPECIFIED ORGANISM Status: Acute Qualifiers: Pneumonia type: due to unspecified organism - Plan cont current plan of care, continue antibiotics, PT/OT, respiratory therapy, incentive spirometry, DVT proph w/lovenox cont current plan of care, continue antibiotics, PT/OT, respiratory therapy, incentive spirometry, DVT proph w/lovenox Sepsis with pneumonia , patient is on broad spectrum ABX per Pulmonary, unable to bring up secretions, will do Acapella. , will continue to Follow. Atrial Fluter, rate is controlled with Cardizem, Continue with Cardiology recommedations Headache t responding to Toradol and Pt has signs suggestive left front Sinusisitis, will continue FLonase and Afrin. DVT prophylaxis: Lovenox anticoagulation Hypotension: from sepsis, pt is on IV fluids. will continue to Monitor in ICU. - Discharge Day Encounter end time: 12:00 Review of Systems - Review of Systems Constitutional: weakness, malaise Eyes: negative: Pain, Vision Change, Conjunctivae Inflammation, Eyelid Inflammation, Redness, Other ENT: negative: Ear Pain, Ear Discharge, Nose Pain, Nose Discharge, Nose Congestion, Mouth Pain, Mouth Swelling, Throat Pain, Throat Swelling, Other Respiratory: Cough, Shortness of Breath, Sputum Cardiovascular: negative: chest pain, palpitations, orthopnea, paroxysmal nocturnal dyspnea, edema, light headedness, other Gastrointestinal: negative: Nausea, Vomiting, Abdominal Pain, Diarrhea, Constipation, Melena, Hematochezia, Other Genitourinary: negative: Dysuria, Frequency, Incontinence, Hematuria, Retention , Other Musculoskeletal: negative: Neck Pain, Shoulder Pain, Arm Pain, Back Pain, Hand Pain, Leg Pain, Foot Pain, Other Skin: negative: Rash, Lesions, Errol, Bruising, Other Neurological: negative: Weakness, Numbness, Incoordination, Change in Speech, Confusion, Seizures, Other - Medications/Allergies Allergies/Adverse Reactions: Allergies Allergy/AdvReac Type Severity Reaction Status Date / Time Sulfa (Sulfonamide Allergy Verified 04/03/17 21:50 Antibiotics) Medications: Current Medications Acetaminophen (Tylenol Elixir) 650 mg PO Q6H PRN PRN Reason: Fever > 101 or Mild Pain Last Admin: 04/04/17 09:48 Dose: 650 mg Hydrocodone Bitart/Acetaminophen ([place] 5/325) 1 tab PO Q6H PRN PRN Reason: Severe Pain (7-10) Last Admin: 04/05/17 07:00 Dose: 1 tab Al Hydroxide/Mg Hydroxide (Maalox) 30 ml PO Q8H PRN PRN Reason: Indigestion Albuterol/Ipratropium (Duoneb) 3 ml NEB Q6H PRN PRN Reason: SOB &/or Wheezing Albuterol/Ipratropium (Duoneb) 3 ml NEB [id number] [facility] Last Admin: 04/05/17 13:03 Dose: 3 ml Benzonatate (Tessalon) 100 mg PO Q4H PRN PRN Reason: Cough Bisacodyl (Dulcolax) 10 mg PO DAILYPRN PRN PRN Reason: Constipation Clonidine (Catapres) 0.1 mg PO Q4H PRN PRN Reason: Systolic BP > 180 Diltiazem HCl (Cardizem) 30 mg PO ACHS [facility] Last Admin: 04/05/17 11:50 Dose: 30 mg Fluticasone Propionate (Flonase Nasal [place]) 0 gm NASAL BID [facility] Last Admin: 04/05/17 08:12 Dose: 1 spray Guaifenesin (Robitussin Sf) 200 mg PO Q4H PRN PRN Reason: Cough Guaifenesin (Mucinex) 1,200 mg PO Q12HR [facility] Last Admin: 04/05/17 09:20 Dose: 1,200 mg Hydralazine HCl (Apresoline) 10 mg SLOW IVP Q4H PRN PRN Reason: Systolic BP > 180 Levofloxacin 750 mg/ Device 150 mls @ 100 mls/hr IVPB 0100 [facility] Last Admin: 04/05/17 00:16 Dose: 150 mls Norepinephrine Bitartrate (Levophed) 250 mls @ 0 mls/hr IVPB PRN PRN; Protocol ; Titrate PRN Reason: To maintain MAP > 65 Last Admin: 04/04/17 20:25 Dose: 250 mls Piperacillin Sod/Tazobactam (Sod 4.5 gm/ Sodium Chloride) 100 mls @ 200 mls/hr IVPB 0400,1000,1600,2200 [facility] Last Admin: 04/05/17 10:53 Dose: 100 mls Potassium Chloride 40 meq/ (Sodium Chloride) 270 mls @ 135 mls/hr IVPB ASDIR PRN PRN Reason: FOR SERUM K+ 2.5 - 3.5 Potassium Chloride 40 meq/ (Device) 100 mls @ 50 mls/hr IVPB ASDIR PRN PRN Reason: FOR SERUM K+ 2.5 - 3.5 Magnesium Sulfate 1 gm/ Sodium (Chloride) 102 mls @ 102 mls/hr IV PRN PRN PRN Reason: MAG LEVEL 1.4 - 2.0 Magnesium Sulfate 2 gm/ Device 100 mls @ 100 mls/hr IVPB ASDIR PRN PRN Reason: MAGNESIUM < 1.4 Potassium Phosphate 9 mmol/ (Sodium Chloride) 103 mls @ 25.75 mls/hr IVPB ASDIR PRN PRN Reason: Phosphate 1.0-1.8 Potassium Phosphate 12 mmol/ (Sodium Chloride) 254 mls @ 63.5 mls/hr IV ASDIR PRN PRN Reason: Serum phosphate 0.5-0.9 Potassium Phosphate 15 mmol/ (Sodium Chloride) 255 mls @ 63.75 mls/hr IV ASDIR PRN PRN Reason: Serum Phos < 0.5 Ibuprofen (Motrin) 200 mg PO Q6H PRN PRN Reason: FOR FEVER Last Admin: 04/04/17 09:48 Dose: 200 mg Ketorolac Tromethamine (Toradol) 30 mg IVP Q6H PRN PRN Reason: Moderate Pain (4-6) Stop: 04/09/17 15:25 Last Admin: 04/05/17 11:53 Dose: 30 mg Loratadine (Claritin) 10 mg PO DAILYPRN PRN PRN Reason: Sinus Symptoms Magnesium Hydroxide (Milk Of Magnesium) 30 ml PO Q8H PRN PRN Reason: Constipation Magnesium Oxide (Magnesium Oxide) 400 mg PO BIDPRN PRN PRN Reason: FOR SERUM MAG 1.4 - 2.0 Magnesium Oxide (Magnesium Oxide) 800 mg PO PRN PRN PRN Reason: FOR SERUM MAG < 1.4 Mineral Oil/White Petrolatum (Lacri-Lube Ointment) 0 gm EA EYE PRN PRN PRN Reason: Dry Eyes Miscellaneous Medication (Phos-Nak) 1 pkt PO TIDPRN PRN PRN Reason: FOR PHOS LEVEL 1.0 - 1.8 Miscellaneous Medication (Phos-Nak) 2 pkt PO TIDPRN PRN PRN Reason: FOR PHOS LEVEL 0.5 - 1.0 Nitroglycerin (Nitrostat) 0.4 mg SL Q5MIN PRN PRN Reason: Chest Pain Ccu Electrolyte (Replacement Protocol) 0 each FS PRN PRN PRN Reason: FOR ELECTROLYTE REPLACEMENT Ondansetron HCl (Zofran) 4 mg IVP Q6H PRN PRN Reason: Nausea/Vomiting Last Admin: 04/04/17 01:10 Dose: 4 mg Oxymetazoline HCl (Oxymetazoline Hcl) 1 sprays NASAL BID [facility] Stop: 04/07/17 09:01 Last Admin: 04/05/17 09:13 Dose: 1 drop Pantoprazole Sodium (Protonix) 40 mg PO DAILY [facility] Last Admin: 04/05/17 08:11 Dose: 40 mg Potassium Chloride (K-Dur) 40 meq PO ASDIR PRN PRN Reason: FOR SERUM K+ 2.5 - 3.5 Last Admin: 04/05/17 08:11 Dose: 40 meq Potassium Chloride (Klor-Con) 40 meq PER TUBE ASDIR PRN PRN Reason: FOR SERUM K+ 2.5-3.5 Sumatriptan Succinate (Imitrex) 50 mg PO DAILYPRN PRN PRN Reason: Migraine Headache Last Admin: 04/04/17 10:53 Dose: 50 mg Topiramate (Topamax) 400 mg PO BID [facility] Last Admin: 04/05/17 09:13 Dose: 400 mg Tramadol HCl (Ultram) 50 mg PO Q4H PRN PRN Reason: Moderate Pain (4-6) Last Admin: 04/04/17 13:56 Dose: 50 mg
[2017-04-05] MEDS: Diabetic Tussin 200 MG/10 ML UDCUP PO PRN (22:20)
[2017-04-06] MEDS: Ketorolac Tromethamine 30 MG/ML VIAL IVP PRN ×3 (00:51→22:26)
[2017-04-06] MEDS: Piperacillin/Tazobactam 4.5 GM in Sodium Chloride 0.9% 100 ML IVPB SCH ×4 (03:31→22:25)
[2017-04-06 06:32] LABS: Hemoglobin 9.6 g/dL (12.0-16.0); Mean Corpuscular HGB CONC 34.2 g/dL (32.0-36.0); Platelet Count 93 thou/uL (130-400); RBC Distribution Width 11.5 % (11.5-14.5); Red Blood Cell (RBC) Count 2.73 mill/uL (4.20-5.40); White Blood Cell (WBC) Count 6.5 thou/uL (4.8-10.8)
[2017-04-06 06:36] LABS: Anion Gap 10 mmol/L (10-20); BUN (Urea Nitrogen) 7 mg/dL (9.8-20.1); Calc. Creatinine Clearance 87 mL/min (70-130); Calcium 8.8 mg/dL (7.8-10.44); Carbon Dioxide 18 mmol/L (22-29); Chloride 114 mmol/L (98-107); Estimated GFR-MDRD Greater than 90; Glucose 89 mg/dL (70-105); Potassium 3.4 mmol/L (3.5-5.1); Sodium 139 mmol/L (136-145)
[2017-04-06 06:54] LABS: Band 11 % (5-11); Eosinophils 1 % (0-10); Lymphocytes 13 % (21-51); MDiff Complete? YES; Macrocytosis MODERATE=16-30 cells (100X) (0-5/hpf); Monocytes 3 % (0-10); Neutrophil 70 % (42-75); PLT Morphology Comment Appears Decreased; Reactive Lymphocytes 2 % (0-10)
--- NOTE | 2017-04-06 07:53 | RAD ---
PORTABLE UPRIGHT FRONTAL CHEST RADIOGRAPH: DATE: 04/06/17. COMPARISON: 04/03/17. HISTORY: Respiratory distress, abnormal left basilar opacity seen on prior x-ray. FINDINGS: Stable right vascular catheter. No pneumothorax. There has been interval development of nonspecific linear/interstitial opacity in the right lung base. There is dense consolidative change in the left base, worsened. Hazy density in the mid left lung zone and inferior left lung zone has worsened sig nificantly, suggesting enlarging/developing pleural fluid as well. Calcification is seen adjacent to the greater tuberosity on the left, suspicious for possible calcifi c tendinosis. IMPRESSION: Worsening dense pleural and parenchymal opacity within the left hemithorax. Developing interstitial opacity in the right lung base. Findings may signify infectious pneumonitis/aspiration within the le ft base. The degree of edema cannot be excluded. Followup to resolution advised. POS: AMY
[2017-04-06] MEDS: Topiramate 100 MG TAB PO SCH ×2 (08:04→22:27)
[2017-04-06] MEDS: guaiFENesin ER 600 MG TAB PO SCH ×2 (08:04→22:25)
[2017-04-06] MEDS: Fluticasone Propionate Nasal Spray 16 gm Bottle NASAL SCH ×2 (08:05→22:49)
[2017-04-06] MEDS: Oxymetazoline HCl 0.05% ( 15 ML ) NASAL SCH ×2 (08:05→22:48)
--- NOTE | 2017-04-06 09:49 | PDOC.PULPN ---
Progress Note: Subj/Obj - Subjective Date: 04/06/17 Time: 09:48 Narrative: The patient feels better. She had no acute complaints. - ROS Constitutional: weakness Respiratory: congestion, cough - Objective Allergies/Adverse Reactions: Allergies Allergy/AdvReac Type Severity Reaction Status Date / Time Sulfa (Sulfonamide Allergy Verified 04/03/17 21:50 Antibiotics) Medications: Current Medications Acetaminophen (Tylenol Elixir) 650 mg PO Q6H PRN PRN Reason: Fever > 101 or Mild Pain Last Admin: 04/04/17 09:48 Dose: 650 mg Hydrocodone Bitart/Acetaminophen ([place] 5/325) 1 tab PO Q6H PRN PRN Reason: Severe Pain (7-10) Last Admin: 04/05/17 22:48 Dose: 1 tab Al Hydroxide/Mg Hydroxide (Maalox) 30 ml PO Q8H PRN PRN Reason: Indigestion Albuterol/Ipratropium (Duoneb) 3 ml NEB Q6H PRN PRN Reason: SOB &/or Wheezing Albuterol/Ipratropium (Duoneb) 3 ml NEB [id number] [facility] Last Admin: 04/06/17 08:37 Dose: 3 ml Benzonatate (Tessalon) 100 mg PO Q4H PRN PRN Reason: Cough Bisacodyl (Dulcolax) 10 mg PO DAILYPRN PRN PRN Reason: Constipation Clonidine (Catapres) 0.1 mg PO Q4H PRN PRN Reason: Systolic BP > 180 Diltiazem HCl (Cardizem) 30 mg PO ACHS [facility] Last Admin: 04/06/17 08:05 Dose: 30 mg Fluticasone Propionate (Flonase Nasal [place]) 0 gm NASAL BID [facility] Last Admin: 04/06/17 08:05 Dose: 1 spray Guaifenesin (Robitussin Sf) 200 mg PO Q4H PRN PRN Reason: Cough Last Admin: 04/05/17 22:20 Dose: 200 mg Guaifenesin (Mucinex) 1,200 mg PO Q12HR [facility] Last Admin: 04/06/17 08:04 Dose: 1,200 mg Hydralazine HCl (Apresoline) 10 mg SLOW IVP Q4H PRN PRN Reason: Systolic BP > 180 Levofloxacin 750 mg/ Device 150 mls @ 100 mls/hr IVPB 0100 [facility] Last Admin: 04/06/17 00:54 Dose: 150 mls Norepinephrine Bitartrate (Levophed) 250 mls @ 0 mls/hr IVPB PRN PRN; Protocol ; Titrate PRN Reason: To maintain MAP > 65 Last Admin: 04/04/17 20:25 Dose: 250 mls Piperacillin Sod/Tazobactam (Sod 4.5 gm/ Sodium Chloride) 100 mls @ 200 mls/hr IVPB 0400,1000,1600,2200 [facility] Last Admin: 04/06/17 03:31 Dose: 100 mls Potassium Chloride 40 meq/ (Sodium Chloride) 270 mls @ 135 mls/hr IVPB ASDIR PRN PRN Reason: FOR SERUM K+ 2.5 - 3.5 Potassium Chloride 40 meq/ (Device) 100 mls @ 50 mls/hr IVPB ASDIR PRN PRN Reason: FOR SERUM K+ 2.5 - 3.5 Magnesium Sulfate 1 gm/ Sodium (Chloride) 102 mls @ 102 mls/hr IV PRN PRN PRN Reason: MAG LEVEL 1.4 - 2.0 Magnesium Sulfate 2 gm/ Device 100 mls @ 100 mls/hr IVPB ASDIR PRN PRN Reason: MAGNESIUM < 1.4 Potassium Phosphate 9 mmol/ (Sodium Chloride) 103 mls @ 25.75 mls/hr IVPB ASDIR PRN PRN Reason: Phosphate 1.0-1.8 Potassium Phosphate 12 mmol/ (Sodium Chloride) 254 mls @ 63.5 mls/hr IV ASDIR PRN PRN Reason: Serum phosphate 0.5-0.9 Potassium Phosphate 15 mmol/ (Sodium Chloride) 255 mls @ 63.75 mls/hr IV ASDIR PRN PRN Reason: Serum Phos < 0.5 Ibuprofen (Motrin) 200 mg PO Q6H PRN PRN Reason: FOR FEVER Last Admin: 04/04/17 09:48 Dose: 200 mg Ketorolac Tromethamine (Toradol) 30 mg IVP Q6H PRN PRN Reason: Moderate Pain (4-6) Stop: 04/09/17 15:25 Last Admin: 04/06/17 00:51 Dose: 30 mg Loratadine (Claritin) 10 mg PO DAILYPRN PRN PRN Reason: Sinus Symptoms Magnesium Hydroxide (Milk Of Magnesium) 30 ml PO Q8H PRN PRN Reason: Constipation Magnesium Oxide (Magnesium Oxide) 400 mg PO BIDPRN PRN PRN Reason: FOR SERUM MAG 1.4 - 2.0 Magnesium Oxide (Magnesium Oxide) 800 mg PO PRN PRN PRN Reason: FOR SERUM MAG < 1.4 Mineral Oil/White Petrolatum (Lacri-Lube Ointment) 0 gm EA EYE PRN PRN PRN Reason: Dry Eyes Miscellaneous Medication (Phos-Nak) 1 pkt PO TIDPRN PRN PRN Reason: FOR PHOS LEVEL 1.0 - 1.8 Miscellaneous Medication (Phos-Nak) 2 pkt PO TIDPRN PRN PRN Reason: FOR PHOS LEVEL 0.5 - 1.0 Nitroglycerin (Nitrostat) 0.4 mg SL Q5MIN PRN PRN Reason: Chest Pain Ccu Electrolyte (Replacement Protocol) 0 each FS PRN PRN PRN Reason: FOR ELECTROLYTE REPLACEMENT Ondansetron HCl (Zofran) 4 mg IVP Q6H PRN PRN Reason: Nausea/Vomiting Last Admin: 04/04/17 01:10 Dose: 4 mg Oxymetazoline HCl (Oxymetazoline Hcl) 1 sprays NASAL BID [facility] Stop: 04/07/17 09:01 Last Admin: 04/06/17 08:05 Dose: 1 spr Pantoprazole Sodium (Protonix) 40 mg PO DAILY [facility] Last Admin: 04/06/17 08:04 Dose: 40 mg Potassium Chloride (K-Dur) 40 meq PO ASDIR PRN PRN Reason: FOR SERUM K+ 2.5 - 3.5 Last Admin: 04/05/17 08:11 Dose: 40 meq Potassium Chloride (Klor-Con) 40 meq PER TUBE ASDIR PRN PRN Reason: FOR SERUM K+ 2.5-3.5 Sumatriptan Succinate (Imitrex) 50 mg PO DAILYPRN PRN PRN Reason: Migraine Headache Last Admin: 04/04/17 10:53 Dose: 50 mg Topiramate (Topamax) 400 mg PO BID [facility] Last Admin: 04/06/17 08:04 Dose: 400 mg Tramadol HCl (Ultram) 50 mg PO Q4H PRN PRN Reason: Moderate Pain (4-6) Last Admin: 04/04/17 13:56 Dose: 50 mg MAR Reviewed: Yes Vital Signs: Vital Signs Temp 97.8 F 04/06/17 08:00 Pulse 78 04/06/17 08:37 Resp 18 04/06/17 08:37 BP 105/73 04/06/17 08:00 Pulse Ox 95 04/06/17 08:37 Intake & Output 04/05/17 04/06/17 04/06/17 18:59 06:59 18:59 Intake Total 2528.8 1900 Output Total 1725 1200 Balance 803.8 700 Weight 110 lb 14.28 oz 112 lb 14.4 oz Intake: Intake, IV Amount 438.8 300 Norepinephrine 8 MG/0.9% 10.8 NS 250 ml @ Titrate IVPB PRN PRN Rx#:[id number] Piperacillin/Tazobactam 4 100 .5 gm In Sodium Chloride 0.9% 100 ml @ 200 mls/hr IVPB 0400,1000,1600,2200 [facility] Rx#:[id number] Sodium Chloride 0.9% 1, 328 000 ml @ 75 mls/hr IV . [id number] [facility] Rx#:[id number] Oral 2090 1600 Output: Urine 1350 1200 Output, [place] 375 Other: Voiding Method Indwelling Catheter Toilet Toilet # Measured Voids 1 # Unmeasured Voids 3 # Bowel Movements 1 Progress Note: Exam - Physical Exam Constitutional: NAD HEENT: PERRLA, sclera anicteric Neck: no nodes Cardiovascular: RRR Respiratory: rales Gastrointestinal: soft, non-tender Musculoskeletal: no edema Neurological: non-focal, moves all 4 limbs Lymphatic: no nodes Psychiatric: normal affect, A&O x 3 Skin: no rash - Labs Result Diagrams: 04/06/17 05:43 04/06/17 05:43 Lab results: Laboratory Results - last 24 hr 04/06/17 04/06/17 05:43 05:43 WBC 6.5 RBC 2.73 L Hgb 9.6 L Hct 28.0 L MCV 103.0 H MCH 35.0 H MCHC 34.2 RDW 11.5 Plt Count 93 L MPV 8.0 Neutrophils % (Manual) 70 Band Neuts % (Manual) 11 Lymphocytes % (Manual) 13 L Reactive Lymphs % 2 Monocytes % (Manual) 3 Eosinophils % (Manual) 1 Neutrophils # Not Reportable Lymphocytes # Not Reportable Plt Morphology Comment Appears Decreased L Macrocytosis MODERATE=16-30 cells Sodium 139 Potassium 3.4 L Chloride 114 H Carbon Dioxide 18 L Anion Gap 10 BUN 7 L Creatinine 0.61 Estimated GFR (MDRD) Greater than 90 Glucose 89 Calcium 8.8 Progress Note: A/P - Problems (1) Atrial flutter Current Visit: Yes Status: Acute Code(s): I48.92 - UNSPECIFIED ATRIAL FLUTTER Qualifiers: Atrial flutter type: typical Qualified Code(s): I48.3 - Typical atrial flutter (2) Pneumonia Current Visit: Yes Status: Acute Code(s): J18.9 - PNEUMONIA, UNSPECIFIED ORGANISM Qualifiers: Pneumonia type: due to unspecified organism (3) Sepsis Current Visit: Yes Status: Acute Code(s): A41.9 - SEPSIS, UNSPECIFIED ORGANISM Qualifiers: Sepsis type: sepsis due to unspecified organism Qualified Code(s): A41.9 - Sepsis, unspecified organism - Plan Plan: The patient's chest x-ray shows continued infiltrative changes. Despite that , she is clearly better from a functional standpoint. I would continue her current antibiotics and continue to wean the oxygen over the weekend
[2017-04-06] MEDS: HYDROcodone/Acetaminophen 5/325 mg Tablet PO PRN ×2 (11:14→23:48)
--- NOTE | 2017-04-06 12:15 | PDOC.PN ---
- Subjective Encounter Start Date: 04/06/17 Encounter Start Time: 09:00 Patient is seen today, alert and orienjted. No other concenr s, except for perssitant headache preventing her from coughing. - Objective MAR Reviewed: Yes Vital Signs & Weight: Vital Signs (12 hours) Temp Pulse Resp BP Pulse Ox 04/06/17 08:37 78 18 95 04/06/17 08:00 97.8 F 78 18 105/73 95 04/06/17 03:10 97.7 F 82 16 94/69 92 L 04/06/17 00:35 90 22 H 88 L Weight Admit Weight 106 lb 7.732 oz Weight 112 lb 14.4 oz Most Recent Monitor Data Heart Rate from ECG 93 NIBP 90/58 NIBP BP-Mean 64 Respiration from ECG 23 SpO2 92 I&O: 04/05/17 04/06/17 04/07/17 06:59 06:59 06:59 Intake Total 6555.1 4428.8 Output Total 5485 2925 Balance 1070.1 1503.8 Result Diagrams: 04/06/17 05:43 04/06/17 05:43 Radiology Reviewed by me: Yes Phys Exam - Physical Examination HEENT: PERRLA, moist MMs Neck: no nodes, no JVD Respiratory: no rales, wheezing present Cardiovascular: RRR, no significant murmur, no rub, gallop, irregular Gastrointestinal: soft, non-tender Musculoskeletal: no edema, pulses present Neurological: non-focal, normal sensation Lymphatic: no nodes Psychiatric: normal affect, A&O x 3 Dx/Plan (1) Acute headache Code(s): R51 - HEADACHE Status: Acute Qualifiers: Intractability: intractable (2) Sepsis Code(s): A41.9 - SEPSIS, UNSPECIFIED ORGANISM Status: Acute Qualifiers: Sepsis type: sepsis due to unspecified organism Qualified Code(s): A41.9 - Sepsis, unspecified organism (3) Atrial flutter Code(s): I48.92 - UNSPECIFIED ATRIAL FLUTTER Status: Acute Qualifiers: Atrial flutter type: typical Qualified Code(s): I48.3 - Typical atrial flutter (4) Pneumonia Code(s): J18.9 - PNEUMONIA, UNSPECIFIED ORGANISM Status: Acute Qualifiers: Pneumonia type: due to unspecified organism - Plan cont current plan of care, continue antibiotics, PT/OT, speech therapy, respiratory therapy, incentive spirometry, out of bed/ambulate, DVT proph w/ lovenox -Sepsis with pneumonia , patient is on broad spectrum ABX per Pulmonary, unable to bring up secretions, will do Acapella. , will continue to Follow. repeat chest xray showed worsening secretion left middle lobe, likely Aspiration pneumonitis, Discussed with Resp therap to do Acapella and Chest PT to improve coughing. -Atrial Fluter, rate is controlled with Cardizem, Continue with Cardiology recommedations -Headache responding to Toradol and Pt has signs suggestive left front Sinusisitis, will continue FLonase d/c Afrin. -DVT prophylaxis: Lovenox anticoagulation -Hypotension: resolved. - Discharge Day Encounter end time: 09:30 Review of Systems - Review of Systems Constitutional: weakness Eyes: negative: Pain, Vision Change, Conjunctivae Inflammation, Eyelid Inflammation, Redness, Other ENT: negative: Ear Pain, Ear Discharge, Nose Pain, Nose Discharge, Nose Congestion, Mouth Pain, Mouth Swelling, Throat Pain, Throat Swelling, Other Respiratory: Cough, Shortness of Breath, SOB with Excertion, Wheezing Cardiovascular: negative: chest pain, palpitations, orthopnea, paroxysmal nocturnal dyspnea, edema, light headedness, other Gastrointestinal: negative: Nausea, Vomiting, Abdominal Pain, Diarrhea, Constipation, Melena, Hematochezia, Other Genitourinary: negative: Dysuria, Frequency, Incontinence, Hematuria, Retention , Other Musculoskeletal: negative: Neck Pain, Shoulder Pain, Arm Pain, Back Pain, Hand Pain, Leg Pain, Foot Pain, Other Skin: negative: Rash, Lesions, Errol, Bruising, Other Neurological: negative: Weakness, Numbness, Incoordination, Change in Speech, Confusion, Seizures, Other - Medications/Allergies Allergies/Adverse Reactions: Allergies Allergy/AdvReac Type Severity Reaction Status Date / Time Sulfa (Sulfonamide Allergy Verified 04/03/17 21:50 Antibiotics) Medications: Current Medications Acetaminophen (Tylenol Elixir) 650 mg PO Q6H PRN PRN Reason: Fever > 101 or Mild Pain Last Admin: 04/04/17 09:48 Dose: 650 mg Hydrocodone Bitart/Acetaminophen ([place] 5/325) 1 tab PO Q6H PRN PRN Reason: Severe Pain (7-10) Last Admin: 04/06/17 11:14 Dose: 1 tab Al Hydroxide/Mg Hydroxide (Maalox) 30 ml PO Q8H PRN PRN Reason: Indigestion Albuterol/Ipratropium (Duoneb) 3 ml NEB Q6H PRN PRN Reason: SOB &/or Wheezing Albuterol/Ipratropium (Duoneb) 3 ml NEB [id number] [facility] Last Admin: 04/06/17 08:37 Dose: 3 ml Benzonatate (Tessalon) 100 mg PO Q4H PRN PRN Reason: Cough Bisacodyl (Dulcolax) 10 mg PO DAILYPRN PRN PRN Reason: Constipation Clonidine (Catapres) 0.1 mg PO Q4H PRN PRN Reason: Systolic BP > 180 Diltiazem HCl (Cardizem) 30 mg PO ACHS [facility] Last Admin: 04/06/17 11:15 Dose: 30 mg Fluticasone Propionate (Flonase Nasal [place]) 0 gm NASAL BID [facility] Last Admin: 04/06/17 08:05 Dose: 1 spray Guaifenesin (Robitussin Sf) 200 mg PO Q4H PRN PRN Reason: Cough Last Admin: 04/05/17 22:20 Dose: 200 mg Guaifenesin (Mucinex) 1,200 mg PO Q12HR [facility] Last Admin: 04/06/17 08:04 Dose: 1,200 mg Hydralazine HCl (Apresoline) 10 mg SLOW IVP Q4H PRN PRN Reason: Systolic BP > 180 Levofloxacin 750 mg/ Device 150 mls @ 100 mls/hr IVPB 0100 [facility] Last Admin: 04/06/17 00:54 Dose: 150 mls Piperacillin Sod/Tazobactam (Sod 4.5 gm/ Sodium Chloride) 100 mls @ 200 mls/hr IVPB 0400,1000,1600,2200 [facility] Last Admin: 04/06/17 10:32 Dose: 100 mls Potassium Chloride 40 meq/ (Sodium Chloride) 270 mls @ 135 mls/hr IVPB ASDIR PRN PRN Reason: FOR SERUM K+ 2.5 - 3.5 Potassium Chloride 40 meq/ (Device) 100 mls @ 50 mls/hr IVPB ASDIR PRN PRN Reason: FOR SERUM K+ 2.5 - 3.5 Magnesium Sulfate 1 gm/ Sodium (Chloride) 102 mls @ 102 mls/hr IV PRN PRN PRN Reason: MAG LEVEL 1.4 - 2.0 Magnesium Sulfate 2 gm/ Device 100 mls @ 100 mls/hr IVPB ASDIR PRN PRN Reason: MAGNESIUM < 1.4 Potassium Phosphate 9 mmol/ (Sodium Chloride) 103 mls @ 25.75 mls/hr IVPB ASDIR PRN PRN Reason: Phosphate 1.0-1.8 Potassium Phosphate 12 mmol/ (Sodium Chloride) 254 mls @ 63.5 mls/hr IV ASDIR PRN PRN Reason: Serum phosphate 0.5-0.9 Potassium Phosphate 15 mmol/ (Sodium Chloride) 255 mls @ 63.75 mls/hr IV ASDIR PRN PRN Reason: Serum Phos < 0.5 Ibuprofen (Motrin) 200 mg PO Q6H PRN PRN Reason: FOR FEVER Last Admin: 04/04/17 09:48 Dose: 200 mg Ketorolac Tromethamine (Toradol) 30 mg IVP Q6H PRN PRN Reason: Moderate Pain (4-6) Stop: 04/09/17 15:25 Last Admin: 04/06/17 00:51 Dose: 30 mg Loratadine (Claritin) 10 mg PO DAILYPRN PRN PRN Reason: Sinus Symptoms Magnesium Hydroxide (Milk Of Magnesium) 30 ml PO Q8H PRN PRN Reason: Constipation Magnesium Oxide (Magnesium Oxide) 400 mg PO BIDPRN PRN PRN Reason: FOR SERUM MAG 1.4 - 2.0 Magnesium Oxide (Magnesium Oxide) 800 mg PO PRN PRN PRN Reason: FOR SERUM MAG < 1.4 Mineral Oil/White Petrolatum (Lacri-Lube Ointment) 0 gm EA EYE PRN PRN PRN Reason: Dry Eyes Miscellaneous Medication (Phos-Nak) 1 pkt PO TIDPRN PRN PRN Reason: FOR PHOS LEVEL 1.0 - 1.8 Miscellaneous Medication (Phos-Nak) 2 pkt PO TIDPRN PRN PRN Reason: FOR PHOS LEVEL 0.5 - 1.0 Nitroglycerin (Nitrostat) 0.4 mg SL Q5MIN PRN PRN Reason: Chest Pain Ccu Electrolyte (Replacement Protocol) 0 each FS PRN PRN PRN Reason: FOR ELECTROLYTE REPLACEMENT Ondansetron HCl (Zofran) 4 mg IVP Q6H PRN PRN Reason: Nausea/Vomiting Last Admin: 04/04/17 01:10 Dose: 4 mg Oxymetazoline HCl (Oxymetazoline Hcl) 1 sprays NASAL BID [facility] Stop: 04/07/17 09:01 Last Admin: 04/06/17 08:05 Dose: 1 spr Pantoprazole Sodium (Protonix) 40 mg PO DAILY [facility] Last Admin: 04/06/17 08:04 Dose: 40 mg Potassium Chloride (K-Dur) 40 meq PO ASDIR PRN PRN Reason: FOR SERUM K+ 2.5 - 3.5 Last Admin: 04/05/17 08:11 Dose: 40 meq Potassium Chloride (Klor-Con) 40 meq PER TUBE ASDIR PRN PRN Reason: FOR SERUM K+ 2.5-3.5 Sumatriptan Succinate (Imitrex) 50 mg PO DAILYPRN PRN PRN Reason: Migraine Headache Last Admin: 04/04/17 10:53 Dose: 50 mg Topiramate (Topamax) 400 mg PO BID [facility] Last Admin: 04/06/17 08:04 Dose: 400 mg Tramadol HCl (Ultram) 50 mg PO Q4H PRN PRN Reason: Moderate Pain (4-6) Last Admin: 04/04/17 13:56 Dose: 50 mg
--- NOTE | 2017-04-06 13:31 | RAD ---
MODIFIED BARIUM SWALLOW: 04/06/2017 HISTORY: Aspiration pneumonia. Dysphagia, unspecified. Feeding difficulties. COMPARISON: None. TECHNIQUE: The patient underwent a modified barium swallow, in conjunction with a member of the division of spee ch pathology. The patient was imaged in the lateral projection, swallowing various consistencies of barium. FINDINGS: No penetration or aspiration is seen on this examination. No abnormalities are seen. IMPRESSION: Unremarkable modified barium swallow. POS: CINDI
--- NOTE | 2017-04-06 17:37 | PRG ---
DATE OF SERVICE: 04/06/2017 Ms. Arevalo is doing well. She had no further arrhythmias. Her echocardiogram showed normal left anahy tricular function. ASSESSMENT: Atrial arrhythmias, probably related to her pneumonia. PLAN: Change to diltiazem CD 120 mg a day. No other recommendations at this time. We will sign off . Please call us if needed. Once his pneumonia has resolved, we would probably stop the diltiazem. We will treat her for at least a month after she leaves the hospital. I will be glad to see her if she has any problems.
[2017-04-07] MEDS: Piperacillin/Tazobactam 4.5 GM in Sodium Chloride 0.9% 100 ML IVPB SCH ×4 (03:09→21:53)
[2017-04-07] MEDS: Acetaminophen 325 MG/10.15 ML UDCUP PO PRN (03:09)
[2017-04-07 04:44] LABS: #Eosinphils 0.1 thou/uL (0.0-0.7); #Lymphocytes 0.7 thou/uL (1.20-3.40); #Monocytes 0.3 thou/uL (0.11-0.59); #Neutrophils 4.2 thou/uL (1.40-6.50); %Basophils 0.3 % (0.0-1.0); %Eosinophils 1.1 % (0.0-10.0); %Lymphocytes 13.1 % (21.0-51.0); %Monocytes 6.5 % (0.0-10.0); Hemoglobin 9.2 g/dL (12.0-16.0); Mean Corpuscular HGB CONC 34.5 g/dL (32.0-36.0); Mean Corpuscular Hemoglobin 35.1 pg (27.0-31.0); Mean Platelet Volume 7.4 fL (7.4-10.4); Platelet Count 99 thou/uL (130-400); RBC Distribution Width 11.5 % (11.5-14.5); Red Blood Cell (RBC) Count 2.62 mill/uL (4.20-5.40); White Blood Cell (WBC) Count 5.3 thou/uL (4.8-10.8)
[2017-04-07 05:07] LABS: Anion Gap 11 mmol/L (10-20); BUN (Urea Nitrogen) 8 mg/dL (9.8-20.1); Calc. Creatinine Clearance 83 mL/min (70-130); Calcium 8.5 mg/dL (7.8-10.44); Carbon Dioxide 18 mmol/L (22-29); Chloride 112 mmol/L (98-107); Estimated GFR-MDRD Greater than 90; Glucose 107 mg/dL (70-105); Sodium 138 mmol/L (136-145)
[2017-04-07 05:30] LABS: Potassium 2.6 mmol/L (3.5-5.1)
[2017-04-07] MEDS ORDERED: DC Electrolyte Protocol FS ONE (06:00)
[2017-04-07] MEDS ORDERED: Potassium Chloride 40 MEQ in Sodium Chloride 0.9% 500 ML IVPB SCH ×4 (06:30)
[2017-04-07] MEDS: Potassium Chloride 20 MEQ TAB PO SCH ×3 (06:46→15:30)
[2017-04-07 06:51] LABS: Magnesium 1.2 mg/dL (1.6-2.6); Phosphorus 2.2 mg/dL (2.3-4.7)
[2017-04-07] MEDS: Oxymetazoline HCl 0.05% ( 15 ML ) NASAL SCH (09:25)
--- NOTE | 2017-04-07 09:25 | PDOC.PN ---
- Subjective Encounter Start Date: 04/07/17 Encounter Start Time: 09:00 Patient is seen today, c/o persistant hedache, She continue to improve on her breathing, she is very weak today. - Objective MAR Reviewed: Yes Vital Signs & Weight: Vital Signs (12 hours) Temp Pulse Resp BP Pulse Ox 04/07/17 08:24 96 16 95 04/07/17 07:47 98.8 F 94 20 128/85 92 L 04/07/17 04:38 99 F 93 20 124/83 94 L 04/07/17 02:49 89 16 92 L 04/06/17 22:44 94 16 94 L Weight Admit Weight 106 lb 7.732 oz Weight 114 lb 11.2 oz Most Recent Monitor Data Heart Rate from ECG 93 NIBP 90/58 NIBP BP-Mean 64 Respiration from ECG 23 SpO2 92 I&O: 04/06/17 04/07/17 04/08/17 06:59 06:59 06:59 Intake Total 4428.8 1130 Output Total 2925 1600 Balance 1503.8 -470 Result Diagrams: 04/07/17 03:59 04/07/17 03:59 Radiology Reviewed by me: Yes Phys Exam - Physical Examination HEENT: PERRLA, moist MMs Neck: no nodes, no JVD Respiratory: no rales, wheezing present Cardiovascular: RRR, no significant murmur Gastrointestinal: soft, non-tender Musculoskeletal: no edema, pulses present Dx/Plan (1) Acute headache Code(s): R51 - HEADACHE Status: Acute Qualifiers: Intractability: intractable (2) Sepsis Code(s): A41.9 - SEPSIS, UNSPECIFIED ORGANISM Status: Acute Qualifiers: Sepsis type: sepsis due to unspecified organism Qualified Code(s): A41.9 - Sepsis, unspecified organism (3) Atrial flutter Code(s): I48.92 - UNSPECIFIED ATRIAL FLUTTER Status: Acute Qualifiers: Atrial flutter type: typical Qualified Code(s): I48.3 - Typical atrial flutter (4) Pneumonia Code(s): J18.9 - PNEUMONIA, UNSPECIFIED ORGANISM Status: Acute Qualifiers: Pneumonia type: due to unspecified organism (5) Hypomagnesemia Code(s): E83.42 - HYPOMAGNESEMIA Status: Acute (6) Hypokalemia Code(s): E87.6 - HYPOKALEMIA Status: Acute - Plan -Sepsis with pneumonia , patient is on broad spectrum ABX per Pulmonary, unable to bring up secretions, will do Acapella. , will continue to Follow. repeat chest xray tomorrow, Discussed with Resp therap to do Acapella and Chest PT to improve coughing. - Hypomagnesemia and Hypokalemia. replaced electrolytes per proptocol. closly monitor for any rhythm changes. -Atrial Fluter, rate is controlled with Cardizem, Continue with Cardiology recommedations, -Headache responding to Toradol and Pt has signs suggestive left front Sinusisitis, will continue FLonase d/c Afrin. -DVT prophylaxis: Lovenox anticoagulation -Hypotension: resolved. - Discharge Day Encounter end time: 09:30 Review of Systems - Review of Systems Constitutional: weakness, malaise Eyes: negative: Pain, Vision Change, Conjunctivae Inflammation, Eyelid Inflammation, Redness, Other ENT: negative: Ear Pain, Ear Discharge, Nose Pain, Nose Discharge, Nose Congestion, Mouth Pain, Mouth Swelling, Throat Pain, Throat Swelling, Other Respiratory: Cough, Shortness of Breath, SOB with Excertion, Sputum, Wheezing Cardiovascular: negative: chest pain, palpitations, orthopnea, paroxysmal nocturnal dyspnea, edema, light headedness, other Gastrointestinal: negative: Nausea, Vomiting, Abdominal Pain, Diarrhea, Constipation, Melena, Hematochezia, Other Genitourinary: negative: Dysuria, Frequency, Incontinence, Hematuria, Retention , Other Musculoskeletal: negative: Neck Pain, Shoulder Pain, Arm Pain, Back Pain, Hand Pain, Leg Pain, Foot Pain, Other Skin: negative: Rash, Lesions, Errol, Bruising, Other Neurological: Weakness. negative: Numbness, Incoordination, Change in Speech, Confusion, Seizures, Other - Medications/Allergies Allergies/Adverse Reactions: Allergies Allergy/AdvReac Type Severity Reaction Status Date / Time Sulfa (Sulfonamide Allergy Verified 04/03/17 21:50 Antibiotics) Medications: Current Medications Acetaminophen (Tylenol Elixir) 650 mg PO Q6H PRN PRN Reason: Fever > 101 or Mild Pain Last Admin: 04/07/17 03:09 Dose: 650 mg Hydrocodone Bitart/Acetaminophen ([place] 5/325) 1 tab PO Q6H PRN PRN Reason: Severe Pain (7-10) Last Admin: 04/06/17 23:48 Dose: 1 tab Al Hydroxide/Mg Hydroxide (Maalox) 30 ml PO Q8H PRN PRN Reason: Indigestion Albuterol/Ipratropium (Duoneb) 3 ml NEB Q6H PRN PRN Reason: SOB &/or Wheezing Albuterol/Ipratropium (Duoneb) 3 ml NEB [id number] [facility] Last Admin: 04/07/17 11:01 Dose: 3 ml Benzonatate (Tessalon) 100 mg PO Q4H PRN PRN Reason: Cough Bisacodyl (Dulcolax) 10 mg PO DAILYPRN PRN PRN Reason: Constipation Clonidine (Catapres) 0.1 mg PO Q4H PRN PRN Reason: Systolic BP > 180 Diltiazem HCl (Cardizem Cd) 120 mg PO DAILY [facility] Last Admin: 04/07/17 09:27 Dose: 120 mg Fluticasone Propionate (Flonase Nasal [place]) 0 gm NASAL BID [facility] Last Admin: 04/07/17 09:26 Dose: 1 spray Guaifenesin (Robitussin Sf) 200 mg PO Q4H PRN PRN Reason: Cough Last Admin: 04/05/17 22:20 Dose: 200 mg Guaifenesin (Mucinex) 1,200 mg PO Q12HR [facility] Last Admin: 04/07/17 09:27 Dose: 1,200 mg Hydralazine HCl (Apresoline) 10 mg SLOW IVP Q4H PRN PRN Reason: Systolic BP > 180 Levofloxacin 750 mg/ Device 150 mls @ 100 mls/hr IVPB 0100 [facility] Last Admin: 04/06/17 23:49 Dose: 150 mls Piperacillin Sod/Tazobactam (Sod 4.5 gm/ Sodium Chloride) 100 mls @ 200 mls/hr IVPB 0400,1000,1600,2200 [facility] Last Admin: 04/07/17 10:32 Dose: 100 mls Ibuprofen (Motrin) 200 mg PO Q6H PRN PRN Reason: FOR FEVER Last Admin: 04/04/17 09:48 Dose: 200 mg Ketorolac Tromethamine (Toradol) 30 mg IVP Q6H PRN PRN Reason: Moderate Pain (4-6) Stop: 04/09/17 15:25 Last Admin: 04/06/17 22:26 Dose: 30 mg Loratadine (Claritin) 10 mg PO DAILYPRN PRN PRN Reason: Sinus Symptoms Magnesium Hydroxide (Milk Of Magnesium) 30 ml PO Q8H PRN PRN Reason: Constipation Last Admin: 04/07/17 11:43 Dose: 30 ml Mineral Oil/White Petrolatum (Lacri-Lube Ointment) 0 gm EA EYE PRN PRN PRN Reason: Dry Eyes Nitroglycerin (Nitrostat) 0.4 mg SL Q5MIN PRN PRN Reason: Chest Pain Ondansetron HCl (Zofran) 4 mg IVP Q6H PRN PRN Reason: Nausea/Vomiting Last Admin: 04/04/17 01:10 Dose: 4 mg Pantoprazole Sodium (Protonix) 40 mg PO DAILY [facility] Last Admin: 04/07/17 09:28 Dose: 40 mg Potassium Chloride (K-Dur) 20 meq PO TID-[facility] Stop: 04/07/17 17:01 Last Admin: 04/07/17 11:25 Dose: 20 meq Sumatriptan Succinate (Imitrex) 50 mg PO DAILYPRN PRN PRN Reason: Migraine Headache Last Admin: 04/04/17 10:53 Dose: 50 mg Topiramate (Topamax) 400 mg PO BID [facility] Last Admin: 04/07/17 09:27 Dose: 400 mg Tramadol HCl (Ultram) 50 mg PO Q4H PRN PRN Reason: Moderate Pain (4-6) Last Admin: 04/04/17 13:56 Dose: 50 mg
[2017-04-07] MEDS: Fluticasone Propionate Nasal Spray 16 gm Bottle NASAL SCH ×2 (09:26→21:50)
[2017-04-07] MEDS: Topiramate 100 MG TAB PO SCH ×2 (09:27→21:33)
[2017-04-07] MEDS: guaiFENesin ER 600 MG TAB PO SCH ×2 (09:27→21:33)
[2017-04-07] MEDS ORDERED: Magnesium 2 GM/NS 0.9% 100 ML 2 GM in Premix Bag 1 BAG IVPB SCH (09:45)
[2017-04-07] MEDS: Milk Of Magnesia 30 ML UDCUP PO PRN (11:43)
[2017-04-07 14:32] LABS: Potassium 3.9 mmol/L (3.5-5.1)
[2017-04-07] MEDS: HYDROcodone/Acetaminophen 5/325 mg Tablet PO PRN ×2 (15:29→21:51)
--- NOTE | 2017-04-07 16:24 | PRG ---
DATE OF SERVICE: 04/07/2017 SUBJECTIVE: This morning she says she is still coughing, still short of breath, but better. OBJECTIVE: VITAL SIGNS: Sats are 96%, respirations 16, temperature 97, blood pressure 138/87. CHEST: Bilateral rhonchi. CARDIAC: Normal S1 and S2. No gallops. ABDOMEN: Soft. No masses. LABORATORY DATA: White count 5000, H and H 9 and 26, platelet count is low at 99. Lytes are normal. IMPRESSION: 1. Extensive left-sided pneumonia, pleural effusion. 2. Chronic obstructive pulmonary disease. PLAN: Continue antibiotics, nebulizer treatments, supportive care. May need a thoracentesis if she did not resolve.
[2017-04-07] MEDS: Ibuprofen 200 MG TAB PO PRN (21:52)
[2017-04-08] MEDS: Ondansetron HCl/PF 4 MG/2 ML Vial IVP PRN ×2 (01:07→19:44)
[2017-04-08] MEDS: Piperacillin/Tazobactam 4.5 GM in Sodium Chloride 0.9% 100 ML IVPB SCH ×4 (03:38→22:00)
[2017-04-08 05:30] LABS: #Eosinphils 0.1 thou/uL (0.0-0.7); #Lymphocytes 1.1 thou/uL (1.20-3.40); #Monocytes 0.6 thou/uL (0.11-0.59); %Basophils 0.4 % (0.0-1.0); %Eosinophils 1.2 % (0.0-10.0); %Lymphocytes 18.6 % (21.0-51.0); %Monocytes 10.9 % (0.0-10.0); %Neutrophils 68.9 % (42.0-75.0); Hemoglobin 9.1 g/dL (12.0-16.0); Mean Corpuscular HGB CONC 35.3 g/dL (32.0-36.0); Mean Corpuscular Hemoglobin 35.9 pg (27.0-31.0); Mean Platelet Volume 7.5 fL (7.4-10.4); Platelet Count 132 thou/uL (130-400); RBC Distribution Width 11.7 % (11.5-14.5); Red Blood Cell (RBC) Count 2.55 mill/uL (4.20-5.40); White Blood Cell (WBC) Count 5.9 thou/uL (4.8-10.8)
[2017-04-08 05:41] LABS: Anion Gap 10 mmol/L (10-20); BUN (Urea Nitrogen) 7 mg/dL (9.8-20.1); Calc. Creatinine Clearance 83 mL/min (70-130); Calcium 8.4 mg/dL (7.8-10.44); Carbon Dioxide 17 mmol/L (22-29); Chloride 118 mmol/L (98-107); Estimated GFR-MDRD Greater than 90; Glucose 86 mg/dL (70-105); Potassium 3.6 mmol/L (3.5-5.1); Sodium 141 mmol/L (136-145)
[2017-04-08] MEDS: Topiramate 100 MG TAB PO SCH ×2 (08:48→20:07)
[2017-04-08] MEDS: guaiFENesin ER 600 MG TAB PO SCH ×2 (08:49→20:06)
[2017-04-08] MEDS: Fluticasone Propionate Nasal Spray 16 gm Bottle NASAL SCH ×2 (08:58→20:05)
--- NOTE | 2017-04-08 12:25 | RAD ---
CHEST 1 VIEW: Date: 04/08/17 HISTORY: 52-year-old female with shortness of breath and left pleural effusion. FINDINGS: There are persistent pleural and parenchymal opacity changes in the left chest, evidence for left eliot g pneumonia and moderate left pleural effusion. There are increased markings in the right perihilar a nd infrahilar region. Right central line in place. Heart size is within normal limits. IMPRESSION: Overall stable appearing left mid and lower lung zone pulmonary parenchymal changes and left pleural effusion. Mild increased markings in the right base. Continue short-term follow-up. POS: AMY
--- NOTE | 2017-04-08 14:10 | PDOC.PN ---
- Subjective Encounter Start Date: 04/08/17 Encounter Start Time: 13:00 Patient is seen today, she is off of oxygen now, She does have SOB on walking, No chest pain, No resp distress. - Objective MAR Reviewed: Yes Vital Signs & Weight: Vital Signs (12 hours) Temp Pulse Resp BP BP Pulse Ox 04/08/17 11:45 98.8 F 98 18 129/73 99 04/08/17 11:21 90 16 98 04/08/17 08:48 93 124/85 04/08/17 08:24 86 16 97 04/08/17 07:45 98.5 F 92 20 96 Weight Admit Weight 106 lb 7.732 oz Weight 105 lb 4 oz Most Recent Monitor Data Heart Rate from ECG 93 NIBP 90/58 NIBP BP-Mean 64 Respiration from ECG 23 SpO2 92 I&O: 04/07/17 04/08/17 04/09/17 06:59 06:59 06:59 Intake Total 1130 800 Output Total 1600 1500 Balance -470 -700 Result Diagrams: 04/08/17 04:29 04/08/17 04:29 Radiology Reviewed by me: Yes (Left pleural effusion persistant Moderate sized) Phys Exam - Physical Examination HEENT: PERRLA, moist MMs Neck: no nodes, no JVD Respiratory: wheezing present (Reduced air Entry to left Lung with dullness in left lower lobe) Cardiovascular: RRR, no significant murmur Gastrointestinal: soft, non-tender Musculoskeletal: no edema, pulses present Neurological: non-focal, normal sensation Psychiatric: normal affect, A&O x 3 Skin: no rash, normal turgor Dx/Plan (1) Pleural effusion associated with pulmonary infection Code(s): J18.9 - PNEUMONIA, UNSPECIFIED ORGANISM; J91.8 - PLEURAL EFFUSION IN OTHER CONDITIONS CLASSIFIED ELSEWHERE Status: Acute (2) Acute headache Code(s): R51 - HEADACHE Status: Acute Qualifiers: Intractability: intractable (3) Sepsis Code(s): A41.9 - SEPSIS, UNSPECIFIED ORGANISM Status: Acute Qualifiers: Sepsis type: sepsis due to unspecified organism Qualified Code(s): A41.9 - Sepsis, unspecified organism (4) Atrial flutter Code(s): I48.92 - UNSPECIFIED ATRIAL FLUTTER Status: Acute Qualifiers: Atrial flutter type: typical Qualified Code(s): I48.3 - Typical atrial flutter (5) Pneumonia Code(s): J18.9 - PNEUMONIA, UNSPECIFIED ORGANISM Status: Acute Qualifiers: Pneumonia type: due to unspecified organism (6) Hypomagnesemia Code(s): E83.42 - HYPOMAGNESEMIA Status: Resolved (7) Hypokalemia Code(s): E87.6 - HYPOKALEMIA Status: Resolved - Plan cont current plan of care, continue antibiotics, respiratory therapy, incentive spirometry, out of bed/ambulate, DVT proph w/lovenox, DVT proph w/SCDs - left pleural effusion likely parapneumonic, Pulmonary said may plan thoracentsisi if significant, will follow recomedations. -Sepsis with pneumonia , patient is on broad spectrum ABX per Pulmonary, unable to bring up secretions, will do Acapella. , will continue to Follow. repeat chest xray tomorrow, Discussed with Resp therap to do Acapella and Chest PT to improve coughing. - Hypomagnesemia and Hypokalemia. replaced electrolytes per proptocol. closly monitor for any rhythm changes. -Atrial Fluter, rate is controlled with Cardizem, Continue with Cardiology recommedations, -Headache responding to Toradol and Pt has signs suggestive left front Sinusisitis, will continue FLonase d/c Afrin. -DVT prophylaxis: Lovenox anticoagulation -Hypotension: resolved. - Discharge Day Encounter end time: 13:30 Review of Systems - Review of Systems Constitutional: weakness Eyes: negative: Pain, Vision Change, Conjunctivae Inflammation, Eyelid Inflammation, Redness, Other ENT: negative: Ear Pain, Ear Discharge, Nose Pain, Nose Discharge, Nose Congestion, Mouth Pain, Mouth Swelling, Throat Pain, Throat Swelling, Other Respiratory: Cough, Shortness of Breath, Pleuritic Pain Cardiovascular: negative: chest pain, palpitations, orthopnea, paroxysmal nocturnal dyspnea, edema, light headedness, other Gastrointestinal: negative: Nausea, Vomiting, Abdominal Pain, Diarrhea, Constipation, Melena, Hematochezia, Other Genitourinary: negative: Dysuria, Frequency, Incontinence, Hematuria, Retention , Other Musculoskeletal: negative: Neck Pain, Shoulder Pain, Arm Pain, Back Pain, Hand Pain, Leg Pain, Foot Pain, Other Skin: negative: Rash, Lesions, Errol, Bruising, Other Neurological: negative: Weakness, Numbness, Incoordination, Change in Speech, Confusion, Seizures, Other - Medications/Allergies Allergies/Adverse Reactions: Allergies Allergy/AdvReac Type Severity Reaction Status Date / Time Sulfa (Sulfonamide Allergy Verified 04/03/17 21:50 Antibiotics) Medications: Current Medications Acetaminophen (Tylenol Elixir) 650 mg PO Q6H PRN PRN Reason: Fever > 101 or Mild Pain Last Admin: 04/07/17 03:09 Dose: 650 mg Hydrocodone Bitart/Acetaminophen ([place] 5/325) 1 tab PO Q6H PRN PRN Reason: Severe Pain (7-10) Last Admin: 04/07/17 21:51 Dose: 1 tab Al Hydroxide/Mg Hydroxide (Maalox) 30 ml PO Q8H PRN PRN Reason: Indigestion Albuterol/Ipratropium (Duoneb) 3 ml NEB Q6H PRN PRN Reason: SOB &/or Wheezing Albuterol/Ipratropium (Duoneb) 3 ml NEB M0LE-LY COUNT INCLUDES THE [facility] Last Admin: 04/08/17 11:21 Dose: 3 ml Benzonatate (Tessalon) 100 mg PO Q4H PRN PRN Reason: Cough Bisacodyl (Dulcolax) 10 mg PO DAILYPRN PRN PRN Reason: Constipation Clonidine (Catapres) 0.1 mg PO Q4H PRN PRN Reason: Systolic BP > 180 Diltiazem HCl (Cardizem Cd) 120 mg PO DAILY COUNT INCLUDES [facility] Last Admin: 04/08/17 08:48 Dose: 120 mg Fluticasone Propionate (Flonase Nasal [place]) 0 gm NASAL BID COUNT INCLUDES [facility] Last Admin: 04/08/17 08:58 Dose: 1 spray Guaifenesin (Robitussin Sf) 200 mg PO Q4H PRN PRN Reason: Cough Last Admin: 04/05/17 22:20 Dose: 200 mg Guaifenesin (Mucinex) 1,200 mg PO Q12HR COUNT INCLUDES [facility] Last Admin: 04/08/17 08:49 Dose: 1,200 mg Hydralazine HCl (Apresoline) 10 mg SLOW IVP Q4H PRN PRN Reason: Systolic BP > 180 Levofloxacin 750 mg/ Device 150 mls @ 100 mls/hr IVPB 0100 [facility] Last Admin: 04/08/17 00:50 Dose: 150 mls Piperacillin Sod/Tazobactam (Sod 4.5 gm/ Sodium Chloride) 100 mls @ 200 mls/hr IVPB 0400,1000,1600,2200 [facility]CLUDES [facility] Last Admin: 04/08/17 10:06 Dose: 100 mls Ibuprofen (Motrin) 200 mg PO Q6H PRN PRN Reason: FOR FEVER Last Admin: 04/07/17 21:52 Dose: 200 mg Ketorolac Tromethamine (Toradol) 30 mg IVP Q6H PRN PRN Reason: Moderate Pain (4-6) Stop: 04/09/17 15:25 Last Admin: 04/06/17 22:26 Dose: 30 mg Loratadine (Claritin) 10 mg PO DAILYPRN PRN PRN Reason: Sinus Symptoms Magnesium Hydroxide (Milk Of Magnesium) 30 ml PO Q8H PRN PRN Reason: Constipation Last Admin: 04/07/17 11:43 Dose: 30 ml Mineral Oil/White Petrolatum (Lacri-Lube Ointment) 0 gm EA EYE PRN PRN PRN Reason: Dry Eyes Nitroglycerin (Nitrostat) 0.4 mg SL Q5MIN PRN PRN Reason: Chest Pain Ondansetron HCl (Zofran) 4 mg IVP Q6H PRN PRN Reason: Nausea/Vomiting Last Admin: 04/08/17 01:07 Dose: 4 mg Pantoprazole Sodium (Protonix) 40 mg PO DAILY COUNT [facility]CLUDES [facility] Last Admin: 04/08/17 08:49 Dose: 40 mg Sumatriptan Succinate (Imitrex) 50 mg PO DAILYPRN PRN PRN Reason: Migraine Headache Last Admin: 04/04/17 10:53 Dose: 50 mg Topiramate (Topamax) 400 mg PO BID COUNT INCLUDES [facility] Last Admin: 04/08/17 08:48 Dose: 400 mg Tramadol HCl (Ultram) 50 mg PO Q4H PRN PRN Reason: Moderate Pain (4-6) Last Admin: 04/04/17 13:56 Dose: 50 mg
--- NOTE | 2017-04-08 17:03 | PRG ---
DATE OF SERVICE: 04/08/2017 SUBJECTIVE: Irina remains short of breath. She has vague chest pain. X-ray still shows a left lower lobe infiltrate and left pleural effusion. OBJECTIVE: VITAL SIGNS: Stable and afebrile, sats 99%, blood pressure 129/73, respiration rate 18. CHEST: Decreased breath sounds in left lung. Right lung unremarkable. CARDIAC: Normal S1 and S2. No gallops. ABDOMEN: Soft, no masses. LABORATORY DATA: White count 5000, H and H 9 and 25, platelet count 132. Electrolytes are normal. IMPRESSION: Left pleural effusion, pneumonia, septic shock, atrial fibrillation, thrombocytopenia. PLAN: Continue antibiotics. May consider thoracentesis up to Dr. Parada. Otherwise continue PT.
[2017-04-08] MEDS: HYDROcodone/Acetaminophen 5/325 mg Tablet PO PRN (19:04)
[2017-04-08] MEDS: Diabetic Tussin 200 MG/10 ML UDCUP PO PRN (19:44)
[2017-04-08] MEDS: Benzonatate 100 MG CAP PO PRN (20:06)
[2017-04-08] MEDS: traMADol HCl 50 MG TAB PO PRN (20:07)
[2017-04-09] MEDS: traMADol HCl 50 MG TAB PO PRN (00:18)
[2017-04-09] MEDS: Diabetic Tussin 200 MG/10 ML UDCUP PO PRN ×2 (00:19→04:29)
[2017-04-09] MEDS: HYDROcodone/Acetaminophen 5/325 mg Tablet PO PRN ×3 (04:29→21:55)
[2017-04-09] MEDS: Piperacillin/Tazobactam 4.5 GM in Sodium Chloride 0.9% 100 ML IVPB SCH ×4 (04:29→21:46)
[2017-04-09 05:20] LABS: #Eosinphils 0.1 thou/uL (0.0-0.7); #Lymphocytes 1.7 thou/uL (1.20-3.40); #Monocytes 0.9 thou/uL (0.11-0.59); #Neutrophils 6.7 thou/uL (1.40-6.50); %Basophils 0.3 % (0.0-1.0); %Eosinophils 1.1 % (0.0-10.0); %Lymphocytes 18.2 % (21.0-51.0); %Monocytes 9.6 % (0.0-10.0); %Neutrophils 70.7 % (42.0-75.0); Hemoglobin 11.1 g/dL (12.0-16.0); Mean Corpuscular HGB CONC 36.6 g/dL (32.0-36.0); Mean Corpuscular Hemoglobin 37.1 pg (27.0-31.0); Mean Platelet Volume 7.3 fL (7.4-10.4); Platelet Count 198 thou/uL (130-400); RBC Distribution Width 11.8 % (11.5-14.5); Red Blood Cell (RBC) Count 2.98 mill/uL (4.20-5.40); White Blood Cell (WBC) Count 9.5 thou/uL (4.8-10.8)
[2017-04-09 05:30] LABS: Anion Gap 11 mmol/L (10-20); BUN (Urea Nitrogen) 5 mg/dL (9.8-20.1); Calc. Creatinine Clearance 91 mL/min (70-130); Calcium 9.1 mg/dL (7.8-10.44); Carbon Dioxide 16 mmol/L (22-29); Chloride 114 mmol/L (98-107); Estimated GFR-MDRD Greater than 90; Glucose 87 mg/dL (70-105); Potassium 3.4 mmol/L (3.5-5.1); Sodium 138 mmol/L (136-145)
[2017-04-09] MEDS ORDERED: Furosemide 40 MG/4 ML VIAL SLOW IVP SCH (10:00)
--- NOTE | 2017-04-09 10:18 | PDOC.PULPN ---
Progress Note: Subj/Obj - Subjective Date: 04/09/17 Time: 09:54 Narrative: feels better. Wants to go home - ROS All systems: reviewed and no additional remarkable complaints except as stated - Objective Allergies/Adverse Reactions: Allergies Allergy/AdvReac Type Severity Reaction Status Date / Time Sulfa (Sulfonamide Allergy Verified 04/03/17 21:50 Antibiotics) Medications: Current Medications Acetaminophen (Tylenol Elixir) 650 mg PO Q6H PRN PRN Reason: Fever > 101 or Mild Pain Last Admin: 04/07/17 03:09 Dose: 650 mg Hydrocodone Bitart/Acetaminophen ([place] 5/325) 1 tab PO Q6H PRN PRN Reason: Severe Pain (7-10) Last Admin: 04/09/17 04:29 Dose: 1 tab Al Hydroxide/Mg Hydroxide (Maalox) 30 ml PO Q8H PRN PRN Reason: Indigestion Albuterol/Ipratropium (Duoneb) 3 ml NEB Q6H PRN PRN Reason: SOB &/or Wheezing Albuterol/Ipratropium (Duoneb) 3 ml NEB [id number] [facility] Last Admin: 04/09/17 06:17 Dose: 3 ml Benzonatate (Tessalon) 100 mg PO Q4H PRN PRN Reason: Cough Last Admin: 04/08/17 20:06 Dose: 100 mg Bisacodyl (Dulcolax) 10 mg PO DAILYPRN PRN PRN Reason: Constipation Clonidine (Catapres) 0.1 mg PO Q4H PRN PRN Reason: Systolic BP > 180 Diltiazem HCl (Cardizem Cd) 120 mg PO DAILY [facility] Last Admin: 04/08/17 08:48 Dose: 120 mg Fluticasone Propionate (Flonase Nasal [place]) 0 gm NASAL BID [facility] Last Admin: 04/08/17 20:05 Dose: 2 spray Furosemide (Lasix) 40 mg SLOW IVP ONE [facility] Guaifenesin (Robitussin Sf) 200 mg PO Q4H PRN PRN Reason: Cough Last Admin: 04/09/17 04:29 Dose: 200 mg Guaifenesin (Mucinex) 1,200 mg PO Q12HR [facility] Last Admin: 04/08/17 20:06 Dose: 1,200 mg Hydralazine HCl (Apresoline) 10 mg SLOW IVP Q4H PRN PRN Reason: Systolic BP > 180 Levofloxacin 750 mg/ Device 150 mls @ 100 mls/hr IVPB 0100 [facility] Last Admin: 04/09/17 00:19 Dose: 150 mls Piperacillin Sod/Tazobactam (Sod 4.5 gm/ Sodium Chloride) 100 mls @ 200 mls/hr IVPB 0400,1000,1600,2200 [facility] Last Admin: 04/09/17 04:29 Dose: 100 mls Ibuprofen (Motrin) 200 mg PO Q6H PRN PRN Reason: FOR FEVER Last Admin: 04/07/17 21:52 Dose: 200 mg Ketorolac Tromethamine (Toradol) 30 mg IVP Q6H PRN PRN Reason: Moderate Pain (4-6) Stop: 04/09/17 15:25 Last Admin: 04/06/17 22:26 Dose: 30 mg Loratadine (Claritin) 10 mg PO DAILYPRN PRN PRN Reason: Sinus Symptoms Magnesium Hydroxide (Milk Of Magnesium) 30 ml PO Q8H PRN PRN Reason: Constipation Last Admin: 04/07/17 11:43 Dose: 30 ml Mineral Oil/White Petrolatum (Lacri-Lube Ointment) 0 gm EA EYE PRN PRN PRN Reason: Dry Eyes Nitroglycerin (Nitrostat) 0.4 mg SL Q5MIN PRN PRN Reason: Chest Pain Ondansetron HCl (Zofran) 4 mg IVP Q6H PRN PRN Reason: Nausea/Vomiting Last Admin: 04/08/17 19:44 Dose: 4 mg Pantoprazole Sodium (Protonix) 40 mg PO DAILY [facility] Last Admin: 04/08/17 08:49 Dose: 40 mg Sodium Chloride (Flush - Normal Saline) 10 ml IVF PRN PRN PRN Reason: Saline Flush Sumatriptan Succinate (Imitrex) 50 mg PO DAILYPRN PRN PRN Reason: Migraine Headache Last Admin: 04/04/17 10:53 Dose: 50 mg Topiramate (Topamax) 400 mg PO BID [facility] Last Admin: 04/08/17 20:07 Dose: 400 mg Tramadol HCl (Ultram) 50 mg PO Q4H PRN PRN Reason: Moderate Pain (4-6) Last Admin: 04/09/17 00:18 Dose: 50 mg MAR Reviewed: Yes Vital Signs: Vital Signs Temp 98.2 F 04/09/17 08:00 Pulse 83 04/09/17 08:00 Resp 20 04/09/17 08:00 BP 101/76 04/09/17 07:58 Pulse Ox 98 04/09/17 07:58 Intake & Output 04/08/17 04/09/17 04/09/17 18:59 06:59 18:59 Intake Total 1230 Balance 1230 Weight 110 lb 1.6 oz Intake: Intake, IV Amount 430 Oral 800 Other: Voiding Method Toilet Toilet # Unmeasured Voids 5 3 Progress Note: Exam - Physical Exam Constitutional: NAD HEENT: PERRLA, sclera anicteric Neck: no JVD Cardiovascular: RRR Focused Respiratory Location: decreased breath sounds: Left (left base) Gastrointestinal: soft, non-tender Musculoskeletal: edema present Neurological: non-focal, normal sensation, moves all 4 limbs Lymphatic: no nodes Psychiatric: normal affect, A&O x 3 Skin: no rash - Labs Result Diagrams: 04/09/17 04:27 04/09/17 04:27 Lab results: Laboratory Results - last 24 hr 04/09/17 04/09/17 04:27 04:27 WBC 9.5 RBC 2.98 L Hgb 11.1 L Hct 30.2 L MCV 102.0 H MCH 37.1 H MCHC 36.6 H RDW 11.8 Plt Count 198 MPV 7.3 L Neutrophils % 70.7 Lymphocytes % 18.2 L Monocytes % 9.6 Eosinophils % 1.1 Basophils % 0.3 Neutrophils # 6.7 H Lymphocytes # 1.7 Monocytes # 0.9 H Eosinophils # 0.1 Basophils # 0.0 Sodium 138 Potassium 3.4 L Chloride 114 H Carbon Dioxide 16 L Anion Gap 11 BUN 5 L Creatinine 0.57 L Estimated GFR (MDRD) Greater than 90 Glucose 87 Calcium 9.1 Progress Note: A/P - Problems (1) Atrial flutter Current Visit: Yes Status: Acute Code(s): I48.92 - UNSPECIFIED ATRIAL FLUTTER Qualifiers: Atrial flutter type: typical Qualified Code(s): I48.3 - Typical atrial flutter (2) Pneumonia Current Visit: Yes Status: Acute Code(s): J18.9 - PNEUMONIA, UNSPECIFIED ORGANISM Qualifiers: Pneumonia type: due to unspecified organism (3) Sepsis Current Visit: Yes Status: Acute Code(s): A41.9 - SEPSIS, UNSPECIFIED ORGANISM Qualifiers: Sepsis type: sepsis due to unspecified organism Qualified Code(s): A41.9 - Sepsis, unspecified organism (4) Pleural effusion, not elsewhere classified Current Visit: Yes Status: Acute Code(s): J90 - PLEURAL EFFUSION, NOT ELSEWHERE CLASSIFIED - Plan Plan: Pt significantly fluid overloaded, compared to admission weight. I'm hoping diuresis will alleviate the pleural effusion that was present on today's CXR. Overall she looks better and I believe she can be discharged soon
[2017-04-09] MEDS: Topiramate 100 MG TAB PO SCH ×2 (10:58→21:45)
[2017-04-09] MEDS: guaiFENesin ER 600 MG TAB PO SCH ×2 (10:58→21:46)
[2017-04-09] MEDS: Fluticasone Propionate Nasal Spray 16 gm Bottle NASAL SCH ×2 (11:02→21:45)
[2017-04-09] MEDS: Potassium Chloride 20 MEQ TAB PO SCH (11:06)
--- NOTE | 2017-04-09 14:32 | PDOC.PN ---
- Subjective Encounter Start Date: 04/09/17 Encounter Start Time: 13:00 Patient is seen today, alert and oriented, breathing good, without oxygen, she is started on lasix today, will look for improvement tomorrow. - Objective MAR Reviewed: Yes Vital Signs & Weight: Vital Signs (12 hours) Temp Pulse Resp BP Pulse Ox 04/09/17 11:30 97.9 F 84 20 104/75 98 04/09/17 10:22 92 16 96 04/09/17 08:00 98.2 F 83 20 04/09/17 07:58 98.2 F 83 20 101/76 98 04/09/17 06:17 89 16 98 04/09/17 04:13 98.4 F 90 16 124/81 94 L 04/09/17 02:45 83 16 97 Weight Admit Weight 106 lb 7.732 oz Weight 110 lb 1.6 oz Most Recent Monitor Data Heart Rate from ECG 93 NIBP 90/58 NIBP BP-Mean 64 Respiration from ECG 23 SpO2 92 I&O: 04/08/17 04/09/17 04/10/17 06:59 06:59 06:59 Intake Total 800 1230 Output Total 1500 Balance -700 1230 Result Diagrams: 04/09/17 04:27 04/09/17 04:27 Radiology Reviewed by me: Yes (persistant Effusion left Lung) Phys Exam - Physical Examination HEENT: PERRLA, moist MMs Neck: no nodes, no JVD Respiratory: no rales, wheezing present Cardiovascular: RRR, no significant murmur Gastrointestinal: soft, non-tender Musculoskeletal: no edema Dx/Plan (1) Pleural effusion associated with pulmonary infection Code(s): J18.9 - PNEUMONIA, UNSPECIFIED ORGANISM; J91.8 - PLEURAL EFFUSION IN OTHER CONDITIONS CLASSIFIED ELSEWHERE Status: Acute (2) Acute headache Code(s): R51 - HEADACHE Status: Acute Qualifiers: Intractability: intractable (3) Sepsis Code(s): A41.9 - SEPSIS, UNSPECIFIED ORGANISM Status: Acute Qualifiers: Sepsis type: sepsis due to unspecified organism Qualified Code(s): A41.9 - Sepsis, unspecified organism (4) Atrial flutter Code(s): I48.92 - UNSPECIFIED ATRIAL FLUTTER Status: Acute Qualifiers: Atrial flutter type: typical Qualified Code(s): I48.3 - Typical atrial flutter (5) Pneumonia Code(s): J18.9 - PNEUMONIA, UNSPECIFIED ORGANISM Status: Acute Qualifiers: Pneumonia type: due to unspecified organism (6) Hypomagnesemia Code(s): E83.42 - HYPOMAGNESEMIA Status: Resolved (7) Hypokalemia Code(s): E87.6 - HYPOKALEMIA Status: Resolved - Plan cont current plan of care, PT/OT, social service technician, DVT proph w/lovenox - left pleural effusion likely fluid overload, lasix started by pulmonary. will repat chest Xray tomorrow. -Sepsis with pneumonia , patient is on broad spectrum ABX per Pulmonary, unable to bring up secretions, will do Acapella. , will continue to Follow. repeat chest xray tomorrow, Discussed with Resp therap to do Acapella and Chest PT to improve coughing. - Hypomagnesemia and Hypokalemia. replaced electrolytes per proptocol. closly monitor for any rhythm changes. -Atrial Fluter, rate is controlled with Cardizem, Continue with Cardiology recommedations, -Headache responding to Toradol and Pt has signs suggestive left front Sinusisitis, will continue FLonase d/c Afrin. -DVT prophylaxis: Lovenox anticoagulation -Hypotension: resolved. - Discharge Day Encounter end time: 13:35 Review of Systems - Review of Systems Constitutional: negative: fever, chills, sweats, weakness, malaise, other Eyes: negative: Pain, Vision Change, Conjunctivae Inflammation, Eyelid Inflammation, Redness, Other ENT: negative: Ear Pain, Ear Discharge, Nose Pain, Nose Discharge, Nose Congestion, Mouth Pain, Mouth Swelling, Throat Pain, Throat Swelling, Other Respiratory: Cough, Shortness of Breath, SOB with Excertion. negative: Dry, Hemoptysis, Pleuritic Pain, Sputum, Wheezing Cardiovascular: negative: chest pain, palpitations, orthopnea, paroxysmal nocturnal dyspnea, edema, light headedness, other Gastrointestinal: negative: Nausea, Vomiting, Abdominal Pain, Diarrhea, Constipation, Melena, Hematochezia, Other Genitourinary: negative: Dysuria, Frequency, Incontinence, Hematuria, Retention , Other Musculoskeletal: negative: Neck Pain, Shoulder Pain, Arm Pain, Back Pain, Hand Pain, Leg Pain, Foot Pain, Other Skin: negative: Rash, Lesions, Errol, Bruising, Other Neurological: negative: Weakness, Numbness, Incoordination, Change in Speech, Confusion, Seizures, Other - Medications/Allergies Allergies/Adverse Reactions: Allergies Allergy/AdvReac Type Severity Reaction Status Date / Time Sulfa (Sulfonamide Allergy Verified 04/03/17 21:50 Antibiotics) Medications: Current Medications Acetaminophen (Tylenol Elixir) 650 mg PO Q6H PRN PRN Reason: Fever > 101 or Mild Pain Last Admin: 04/07/17 03:09 Dose: 650 mg Hydrocodone Bitart/Acetaminophen ([place] 5/325) 1 tab PO Q6H PRN PRN Reason: Severe Pain (7-10) Last Admin: 04/09/17 12:30 Dose: 1 tab Al Hydroxide/Mg Hydroxide (Maalox) 30 ml PO Q8H PRN PRN Reason: Indigestion Albuterol/Ipratropium (Duoneb) 3 ml NEB Q6H PRN PRN Reason: SOB &/or Wheezing Albuterol/Ipratropium (Duoneb) 3 ml NEB [id number] [facility] Last Admin: 04/09/17 10:22 Dose: 3 ml Benzonatate (Tessalon) 100 mg PO Q4H PRN PRN Reason: Cough Last Admin: 04/08/17 20:06 Dose: 100 mg Bisacodyl (Dulcolax) 10 mg PO DAILYPRN PRN PRN Reason: Constipation Clonidine (Catapres) 0.1 mg PO Q4H PRN PRN Reason: Systolic BP > 180 Diltiazem HCl (Cardizem Cd) 120 mg PO DAILY [facility] Last Admin: 04/09/17 10:57 Dose: 120 mg Fluticasone Propionate (Flonase Nasal [place]) 0 gm NASAL BID [facility] Last Admin: 04/09/17 11:02 Dose: 1 spray Guaifenesin (Robitussin Sf) 200 mg PO Q4H PRN PRN Reason: Cough Last Admin: 04/09/17 04:29 Dose: 200 mg Guaifenesin (Mucinex) 1,200 mg PO Q12HR [facility] Last Admin: 04/09/17 10:58 Dose: 1,200 mg Hydralazine HCl (Apresoline) 10 mg SLOW IVP Q4H PRN PRN Reason: Systolic BP > 180 Levofloxacin 750 mg/ Device 150 mls @ 100 mls/hr IVPB 0100 [facility] Last Admin: 04/09/17 00:19 Dose: 150 mls Piperacillin Sod/Tazobactam (Sod 4.5 gm/ Sodium Chloride) 100 mls @ 200 mls/hr IVPB 0400,1000,1600,2200 [facility] Last Admin: 04/09/17 11:07 Dose: 100 mls Ibuprofen (Motrin) 200 mg PO Q6H PRN PRN Reason: FOR FEVER Last Admin: 04/07/17 21:52 Dose: 200 mg Ketorolac Tromethamine (Toradol) 30 mg IVP Q6H PRN PRN Reason: Moderate Pain (4-6) Stop: 04/09/17 15:25 Last Admin: 04/06/17 22:26 Dose: 30 mg Loratadine (Claritin) 10 mg PO DAILYPRN PRN PRN Reason: Sinus Symptoms Magnesium Hydroxide (Milk Of Magnesium) 30 ml PO Q8H PRN PRN Reason: Constipation Last Admin: 04/07/17 11:43 Dose: 30 ml Mineral Oil/White Petrolatum (Lacri-Lube Ointment) 0 gm EA EYE PRN PRN PRN Reason: Dry Eyes Nitroglycerin (Nitrostat) 0.4 mg SL Q5MIN PRN PRN Reason: Chest Pain Ondansetron HCl (Zofran) 4 mg IVP Q6H PRN PRN Reason: Nausea/Vomiting Last Admin: 04/08/17 19:44 Dose: 4 mg Pantoprazole Sodium (Protonix) 40 mg PO DAILY [facility] Last Admin: 04/09/17 10:58 Dose: 40 mg Potassium Chloride (K-Dur) 20 meq PO QAM-WM [facility] Last Admin: 04/09/17 11:06 Dose: 20 meq Sodium Chloride (Flush - Normal Saline) 10 ml IVF PRN PRN PRN Reason: Saline Flush Sumatriptan Succinate (Imitrex) 50 mg PO DAILYPRN PRN PRN Reason: Migraine Headache Last Admin: 04/04/17 10:53 Dose: 50 mg Topiramate (Topamax) 400 mg PO BID [facility] Last Admin: 04/09/17 10:58 Dose: 400 mg Tramadol HCl (Ultram) 50 mg PO Q4H PRN PRN Reason: Moderate Pain (4-6) Last Admin: 04/09/17 00:18 Dose: 50 mg
[2017-04-09] MEDS: Milk Of Magnesia 30 ML UDCUP PO PRN (15:50)
[2017-04-10] MEDS: Piperacillin/Tazobactam 4.5 GM in Sodium Chloride 0.9% 100 ML IVPB SCH ×4 (04:01→22:07)
[2017-04-10 05:36] LABS: Anion Gap 12 mmol/L (10-20); BUN (Urea Nitrogen) 6 mg/dL (9.8-20.1); Calc. Creatinine Clearance 77 mL/min (70-130); Calcium 8.5 mg/dL (7.8-10.44); Carbon Dioxide 17 mmol/L (22-29); Chloride 114 mmol/L (98-107); Estimated GFR-MDRD Greater than 90; Glucose 101 mg/dL (70-105); Potassium 3.9 mmol/L (3.5-5.1); Sodium 139 mmol/L (136-145)
[2017-04-10] MEDS: Potassium Chloride 20 MEQ TAB PO SCH (08:53)
[2017-04-10] MEDS: Fluticasone Propionate Nasal Spray 16 gm Bottle NASAL SCH ×2 (08:53→22:07)
[2017-04-10] MEDS: guaiFENesin ER 600 MG TAB PO SCH ×2 (08:54→22:05)
[2017-04-10] MEDS: Topiramate 100 MG TAB PO SCH ×2 (08:54→22:05)
[2017-04-10] MEDS: HYDROcodone/Acetaminophen 5/325 mg Tablet PO PRN ×3 (08:54→22:05)
[2017-04-10] MEDS: Ondansetron HCl/PF 4 MG/2 ML Vial IVP PRN ×2 (09:00→22:06)
[2017-04-10 12:10] LABS: Bilirubin Negative (Negative); Blood, Urine Negative (Negative); Clarity CLEAR (Clear); Glucose, Urine (Dipstick) Negative (Negative); Leukocyte Negative (Negative); Nitrite Negative (Negative); Protein, Urine (Dipstick) Negative (Neg-Trace); Urobilinogen 0.2 mg/dL (0.2-1.0)
[2017-04-10] MEDS: Milk Of Magnesia 30 ML UDCUP PO PRN (12:12)
[2017-04-10] MEDS: Saccharomyces boulardii 250 MG CAP PO SCH (12:12)
--- NOTE | 2017-04-10 12:36 | PDOC.PN ---
- Subjective Encounter Start Date: 04/10/17 Encounter Start Time: 12:35 Subjective: fever.feels weak and tired. -: some loose stools this am.some abd pain.no vomiting -: no dysuria. some r leg pain yesterday - Objective MAR Reviewed: Yes Vital Signs & Weight: Vital Signs (12 hours) Temp Pulse Resp BP BP Pulse Ox 04/10/17 11:42 85 16 04/10/17 11:39 99.5 F 82 20 84/59 L 94 L 04/10/17 08:53 103 H 111/68 04/10/17 08:00 101.4 F H 103 H 20 111/68 95 04/10/17 07:40 101.4 F H 93 16 97 04/10/17 06:48 94 L 04/10/17 06:46 93 16 04/10/17 04:00 98.9 F 100 18 110/89 97 Weight Admit Weight 106 lb 7.732 oz Weight 104 lb 4.8 oz Most Recent Monitor Data Heart Rate from ECG 93 NIBP 90/58 NIBP BP-Mean 64 Respiration from ECG 23 SpO2 92 I&O: 04/09/17 04/10/17 04/11/17 06:59 06:59 06:59 Intake Total 1230 925 Output Total 1600 Balance 1230 -675 Result Diagrams: 04/09/17 04:27 04/10/17 04:51 Additional Labs: Microbiology 04/04/17 Unknown Nasopharynx - Nares Influenza Types A,B Direct EIA - Final 04/03/17 23:03 Nasopharyngeal swab Respiratory Virus Panel (PCR) (HENRRY) - Final 04/03/17 21:30 Urine voided Urine Culture - Final NO GROWTH AT 36 HOURS 04/03/17 18:22 Venous blood - Right Arm Blood Culture - Final NO GROWTH IN 5 DAYS 04/03/17 18:22 Venous blood - Left Arm Blood Culture - Final NO GROWTH IN 5 DAYS Phys Exam - Physical Examination Constitutional: NAD HEENT: PERRLA, moist MMs, sclera anicteric, oral pharynx no lesions Neck: no nodes, no JVD, supple, full ROM Respiratory: no wheezing, no rales, no rhonchi, clear to auscultation bilateral Cardiovascular: RRR, no significant murmur Gastrointestinal: soft, non-tender, no distention, positive bowel sounds Musculoskeletal: no edema, pulses present Neurological: non-focal, normal sensation, moves all 4 limbs Psychiatric: normal affect, A&O x 3 Skin: no rash Dx/Plan (1) Fever Code(s): R50.9 - FEVER, UNSPECIFIED Status: Acute (2) Sepsis Code(s): A41.9 - SEPSIS, UNSPECIFIED ORGANISM Status: Acute Qualifiers: Sepsis type: sepsis due to unspecified organism Qualified Code(s): A41.9 - Sepsis, unspecified organism (3) Influenza B Code(s): J10.1 - FLU DUE TO OTH IDENT INFLUENZA VIRUS W OTH RESP MANIFEST Status: Acute (4) Atrial flutter Code(s): I48.92 - UNSPECIFIED ATRIAL FLUTTER Status: Acute Qualifiers: Atrial flutter type: typical Qualified Code(s): I48.3 - Typical atrial flutter (5) Pneumonia Code(s): J18.9 - PNEUMONIA, UNSPECIFIED ORGANISM Status: Acute Qualifiers: Pneumonia type: due to unspecified organism (6) Pleural effusion associated with pulmonary infection Code(s): J18.9 - PNEUMONIA, UNSPECIFIED ORGANISM; J91.8 - PLEURAL EFFUSION IN OTHER CONDITIONS CLASSIFIED ELSEWHERE Status: Acute - Plan continue antibiotics, PT/OT ( ), respiratory therapy, incentive spirometry, out of bed/ambulate, DVT proph w/SCDs fever despite broad spectrum IV ABx. all Cx remian negative. -: check for C.Diff,repeat UA,CXR.r/o DVT by doppler LE -: cont ABx for now .may need thoracentesis.appreciate [facility] input. -: NSR.PO cardiazem.cardiology eval done.ECHO w NL EF -: Hemodyanmically stable.cont to monitor. * . Review of Systems - Review of Systems Constitutional: fever, chills, sweats, weakness, malaise. negative: other Respiratory: negative: Cough, Dry, Shortness of Breath, Hemoptysis, SOB with Excertion, Pleuritic Pain, Sputum, Wheezing Cardiovascular: negative: chest pain, palpitations, orthopnea, paroxysmal nocturnal dyspnea, edema, light headedness, other Gastrointestinal: Diarrhea. negative: Nausea, Vomiting, Abdominal Pain, Constipation, Melena, Hematochezia, Other Genitourinary: negative: Dysuria, Frequency, Incontinence, Hematuria, Retention , Other Musculoskeletal: negative: Neck Pain, Shoulder Pain, Arm Pain, Back Pain, Hand Pain, Leg Pain, Foot Pain, Other Neurological: negative: Weakness, Numbness, Incoordination, Change in Speech, Confusion, Seizures, Other - Medications/Allergies Allergies/Adverse Reactions: Allergies Allergy/AdvReac Type Severity Reaction Status Date / Time Sulfa (Sulfonamide Allergy Verified 04/03/17 21:50 Antibiotics) Medications: Current Medications Acetaminophen (Tylenol Elixir) 650 mg PO Q6H PRN PRN Reason: Fever > 101 or Mild Pain Last Admin: 04/07/17 03:09 Dose: 650 mg Hydrocodone Bitart/Acetaminophen ([place] 5/325) 1 tab PO Q6H PRN PRN Reason: Severe Pain (7-10) Last Admin: 04/10/17 08:54 Dose: 1 tab Al Hydroxide/Mg Hydroxide (Maalox) 30 ml PO Q8H PRN PRN Reason: Indigestion Albuterol/Ipratropium (Duoneb) 3 ml NEB Q6H PRN PRN Reason: SOB &/or Wheezing Albuterol/Ipratropium (Duoneb) 3 ml NEB [id number] [facility] Last Admin: 04/10/17 11:42 Dose: 3 ml Benzonatate (Tessalon) 100 mg PO Q4H PRN PRN Reason: Cough Last Admin: 04/08/17 20:06 Dose: 100 mg Bisacodyl (Dulcolax) 10 mg PO DAILYPRN PRN PRN Reason: Constipation Clonidine (Catapres) 0.1 mg PO Q4H PRN PRN Reason: Systolic BP > 180 Diltiazem HCl (Cardizem Cd) 120 mg PO DAILY [facility] Last Admin: 04/10/17 08:53 Dose: 120 mg Fluticasone Propionate (Flonase Nasal [place]) 0 gm NASAL BID [facility] Last Admin: 04/10/17 08:53 Dose: 1 spray Guaifenesin (Robitussin Sf) 200 mg PO Q4H PRN PRN Reason: Cough Last Admin: 04/09/17 04:29 Dose: 200 mg Guaifenesin (Mucinex) 1,200 mg PO Q12HR [facility] Last Admin: 04/10/17 08:54 Dose: 1,200 mg Hydralazine HCl (Apresoline) 10 mg SLOW IVP Q4H PRN PRN Reason: Systolic BP > 180 Levofloxacin 750 mg/ Device 150 mls @ 100 mls/hr IVPB 0100 [facility] Last Admin: 04/10/17 00:48 Dose: 150 mls Piperacillin Sod/Tazobactam (Sod 4.5 gm/ Sodium Chloride) 100 mls @ 200 mls/hr IVPB 0400,1000,1600,2200 [facility] Last Admin: 04/10/17 09:41 Dose: 100 mls Ibuprofen (Motrin) 200 mg PO Q6H PRN PRN Reason: FOR FEVER Last Admin: 04/07/17 21:52 Dose: 200 mg Loratadine (Claritin) 10 mg PO DAILYPRN PRN PRN Reason: Sinus Symptoms Magnesium Hydroxide (Milk Of Magnesium) 30 ml PO Q8H PRN PRN Reason: Constipation Last Admin: 04/10/17 12:12 Dose: 30 ml Mineral Oil/White Petrolatum (Lacri-Lube Ointment) 0 gm EA EYE PRN PRN PRN Reason: Dry Eyes Nitroglycerin (Nitrostat) 0.4 mg SL Q5MIN PRN PRN Reason: Chest Pain Ondansetron HCl (Zofran) 4 mg IVP Q6H PRN PRN Reason: Nausea/Vomiting Last Admin: 04/10/17 09:00 Dose: 4 mg Pantoprazole Sodium (Protonix) 40 mg PO DAILY [facility] Last Admin: 04/10/17 08:54 Dose: 40 mg Potassium Chloride (K-Dur) 20 meq PO QAM-WM [facility] Last Admin: 04/10/17 08:53 Dose: 20 meq Saccharomyces Boulardii (Florastor) 250 mg PO DAILY [facility] Last Admin: 04/10/17 12:12 Dose: 250 mg Sodium Chloride (Flush - Normal Saline) 10 ml IVF PRN PRN PRN Reason: Saline Flush Last Admin: 04/10/17 04:01 Dose: 10 ml Sumatriptan Succinate (Imitrex) 50 mg PO DAILYPRN PRN PRN Reason: Migraine Headache Last Admin: 04/04/17 10:53 Dose: 50 mg Topiramate (Topamax) 400 mg PO BID [facility] Last Admin: 04/10/17 08:54 Dose: 400 mg Tramadol HCl (Ultram) 50 mg PO Q4H PRN PRN Reason: Moderate Pain (4-6) Last Admin: 04/09/17 00:18 Dose: 50 mg
--- NOTE | 2017-04-10 12:58 | PRG ---
DATE OF SERVICE: 04/10/2017 SUBJECTIVE: She felt somewhat better today, had no acute complaints overnight. OBJECTIVE: VITAL SIGNS: She has run a fever to 101.4, pulse is 85, blood pressure 84/59, 24-hour intake 925, ou tput 1600. HEENT: Unremarkable. NECK: No JVD. LUNGS: Mildly diminished breath sounds in the left base. CARDIAC: S1 and S2 regular. ABDOMEN: Soft. EXTREMITIES: No edema. ASSESSMENT: 1. Pneumonia. 2. Left pleural effusion. PLAN: Recheck x-ray, may need thoracentesis.
--- NOTE | 2017-04-10 13:28 | ULT ---
BILATERAL LOWER EXTREMITY VENOUS ULTRASOUND: Date: 04-10-17 Comparison: None. History: Pain and fever, assess for DVT. Technique: Multiplanar grayscale sonographic imaging of the venous structures of the bilateral lower extremity is obtained with color flow and spectral analysis. FINDINGS: Bilateral common femoral veins, greater saphenous veins, profunda femoral veins, femoral veins, popli teal veins, and posterior tibial veins are patent. There is normal blood flow, augmentation, and comp ression within the deep venous system bilaterally. No evidence for DVT on either side. IMPRESSION: No evidence for deep venous thrombosis on either lower extremity. POS: [facility]
[2017-04-10] MEDS: Diabetic Tussin 200 MG/10 ML UDCUP PO PRN (22:21)
[2017-04-10] MEDS: Benzonatate 100 MG CAP PO PRN (22:21)
[2017-04-11] MEDS: traMADol HCl 50 MG TAB PO PRN (00:44)
[2017-04-11] MEDS: Ibuprofen 200 MG TAB PO PRN ×2 (02:29→14:57)
[2017-04-11] MEDS: Benzonatate 100 MG CAP PO PRN ×2 (02:29→21:34)
[2017-04-11] MEDS: Diabetic Tussin 200 MG/10 ML UDCUP PO PRN ×2 (02:29→21:34)
[2017-04-11] MEDS: Piperacillin/Tazobactam 4.5 GM in Sodium Chloride 0.9% 100 ML IVPB SCH ×2 (04:26→11:15)
[2017-04-11] MEDS: HYDROcodone/Acetaminophen 5/325 mg Tablet PO PRN ×3 (04:26→21:34)
[2017-04-11 05:39] LABS: #Eosinphils 0.1 thou/uL (0.0-0.7); #Lymphocytes 1.2 thou/uL (1.20-3.40); #Monocytes 0.9 thou/uL (0.11-0.59); #Neutrophils 7.7 thou/uL (1.40-6.50); %Basophils 0.3 % (0.0-1.0); %Eosinophils 0.9 % (0.0-10.0); %Lymphocytes 11.8 % (21.0-51.0); %Monocytes 8.9 % (0.0-10.0); Hemoglobin 8.8 g/dL (12.0-16.0); Mean Corpuscular HGB CONC 33.6 g/dL (32.0-36.0); Mean Corpuscular Hemoglobin 34.1 pg (27.0-31.0); Mean Platelet Volume 7.5 fL (7.4-10.4); Platelet Count 217 thou/uL (130-400); RBC Distribution Width 11.8 % (11.5-14.5); Red Blood Cell (RBC) Count 2.58 mill/uL (4.20-5.40); White Blood Cell (WBC) Count 9.8 thou/uL (4.8-10.8)
[2017-04-11 06:28] LABS: Anion Gap 13 mmol/L (10-20); BUN (Urea Nitrogen) 7 mg/dL (9.8-20.1); Calc. Creatinine Clearance 79 mL/min (70-130); Calcium 8.7 mg/dL (7.8-10.44); Carbon Dioxide 16 mmol/L (22-29); Chloride 114 mmol/L (98-107); Estimated GFR-MDRD Greater than 90; Glucose 80 mg/dL (70-105); Potassium 4.2 mmol/L (3.5-5.1); Sodium 139 mmol/L (136-145)
[2017-04-11] MEDS: Saccharomyces boulardii 250 MG CAP PO SCH (09:48)
[2017-04-11] MEDS: Potassium Chloride 20 MEQ TAB PO SCH (09:48)
[2017-04-11] MEDS: guaiFENesin ER 600 MG TAB PO SCH ×2 (09:48→21:35)
[2017-04-11] MEDS: Topiramate 100 MG TAB PO SCH ×2 (09:49→21:35)
[2017-04-11 09:51] VITALS: BMI 21.0
[2017-04-11] MEDS: Fluticasone Propionate Nasal Spray 16 gm Bottle NASAL SCH ×2 (11:16→21:34)
--- NOTE | 2017-04-11 11:20 | RAD ---
PORTABLE CHEST: History: Pleural effusion, shortness of breath. Comparison: 04-06-17 FINDINGS: Left sided effusion again noted. Left lower lung atelectasis. Right lung appears clear. Central line appears in adequate position. IMPRESSION: No evidence of significant change from -03-12. POS: [facility]
--- NOTE | 2017-04-11 11:28 | PRG ---
DATE OF SERVICE: 04/11/2017 She feels better today. PHYSICAL EXAMINATION: VITAL SIGNS: Temperature is 98.6, pulse 75, respiration 20, O2 sat 98%, blood pressure 97/75. HEENT: Unremarkable. NECK: No JVD. CHEST: Fairly clear except for slightly diminished breath sounds in the left base. CARDIAC: S1 and S2 regular. ABDOMEN: Soft. EXTREMITIES: No edema. LABORATORY DATA: White blood cell count 9.8, hematocrit 26.2, platelet count 217. Sodium 139, potas sium 4.2, chloride 116, CO2 16, BUN 7, creatinine 0.6, glucose 80. Chest x-ray shows improvement in the left lower lobe findings and the effusion. ASSESSMENT: 1. Improving pneumonia. 2. Influenza. 3. Small left effusion. PLAN: Based on improvement, I do not think she needs a thoracentesis. She needs to increase activit y as tolerated. I would go ahead and convert her over to oral antibiotics in anticipation of getting her out of the hospital by tomorrow.
--- NOTE | 2017-04-11 12:59 | PDOC.PN ---
- Subjective Encounter Start Date: 04/11/17 Encounter Start Time: 12:57 Subjective: feels much better today.no cough/SOB/CP.walked w PT - Objective MAR Reviewed: Yes Vital Signs & Weight: Vital Signs (12 hours) Temp Pulse Resp BP Pulse Ox 04/11/17 11:33 99.5 F 88 20 86/62 L 95 04/11/17 10:19 82 18 95 04/11/17 09:48 75 04/11/17 08:00 98.6 F 75 20 97/65 96 04/11/17 06:02 75 18 98 04/11/17 04:48 97 04/11/17 04:18 98.8 F 75 16 86/61 L 97 Weight Admit Weight 106 lb 7.732 oz Weight 100 lb 14.4 oz Most Recent Monitor Data Heart Rate from ECG 93 NIBP 90/58 NIBP BP-Mean 64 Respiration from ECG 23 SpO2 92 I&O: 04/10/17 04/11/17 04/12/17 06:59 06:59 06:59 Intake Total 925 1200 Output Total 1600 950 Balance -675 250 Result Diagrams: 04/11/17 04:46 04/11/17 04:46 Radiology Reviewed by me: Yes (CXR-stable w Left sided effusion) Phys Exam - Physical Examination Constitutional: NAD HEENT: PERRLA, moist MMs, sclera anicteric, oral pharynx no lesions Neck: no nodes, no JVD, supple, full ROM Respiratory: no wheezing, no rales, no rhonchi, clear to auscultation bilateral Cardiovascular: RRR, no significant murmur Gastrointestinal: soft, non-tender, no distention, positive bowel sounds Musculoskeletal: no edema, pulses present Neurological: non-focal, normal sensation, moves all 4 limbs Psychiatric: normal affect, A&O x 3 Skin: no rash Dx/Plan (1) Fever Code(s): R50.9 - FEVER, UNSPECIFIED Status: Acute Comment: Afebrile for 24 hours (2) Sepsis Code(s): A41.9 - SEPSIS, UNSPECIFIED ORGANISM Status: Acute Qualifiers: Sepsis type: sepsis due to unspecified organism Qualified Code(s): A41.9 - Sepsis, unspecified organism (3) Influenza B Code(s): J10.1 - FLU DUE TO OTH IDENT INFLUENZA VIRUS W OTH RESP MANIFEST Status: Acute (4) Atrial flutter Code(s): I48.92 - UNSPECIFIED ATRIAL FLUTTER Status: Acute Qualifiers: Atrial flutter type: typical Qualified Code(s): I48.3 - Typical atrial flutter (5) Pneumonia Code(s): J18.9 - PNEUMONIA, UNSPECIFIED ORGANISM Status: Acute Qualifiers: Pneumonia type: due to unspecified organism (6) Pleural effusion associated with pulmonary infection Code(s): J18.9 - PNEUMONIA, UNSPECIFIED ORGANISM; J91.8 - PLEURAL EFFUSION IN OTHER CONDITIONS CLASSIFIED ELSEWHERE Status: Acute - Plan continue antibiotics, PT/OT, respiratory therapy, incentive spirometry, out of bed/ambulate, DVT proph w/SCDs Clinically better.no more fever.work up negative again including C.diff -: [facility] -: no need for thoracentesis as clinically better.PCCM following -: care discussed w mom over phone * . Review of Systems - Review of Systems Constitutional: weakness. negative: fever, chills, sweats, malaise, other ENT: negative: Ear Pain, Ear Discharge, Nose Pain, Nose Discharge, Nose Congestion, Mouth Pain, Mouth Swelling, Throat Pain, Throat Swelling, Other Respiratory: negative: Cough, Dry, Shortness of Breath, Hemoptysis, SOB with Excertion, Pleuritic Pain, Sputum, Wheezing Cardiovascular: negative: chest pain, palpitations, orthopnea, paroxysmal nocturnal dyspnea, edema, light headedness, other Gastrointestinal: negative: Nausea, Vomiting, Abdominal Pain, Diarrhea, Constipation, Melena, Hematochezia, Other Genitourinary: negative: Dysuria, Frequency, Incontinence, Hematuria, Retention , Other Musculoskeletal: negative: Neck Pain, Shoulder Pain, Arm Pain, Back Pain, Hand Pain, Leg Pain, Foot Pain, Other Neurological: negative: Weakness, Numbness, Incoordination, Change in Speech, Confusion, Seizures, Other - Medications/Allergies Allergies/Adverse Reactions: Allergies Allergy/AdvReac Type Severity Reaction Status Date / Time Sulfa (Sulfonamide Allergy Verified 04/03/17 21:50 Antibiotics) Medications: Current Medications Acetaminophen (Tylenol Elixir) 650 mg PO Q6H PRN PRN Reason: Fever > 101 or Mild Pain Last Admin: 04/07/17 03:09 Dose: 650 mg Hydrocodone Bitart/Acetaminophen ([place] 5/325) 1 tab PO Q6H PRN PRN Reason: Severe Pain (7-10) Last Admin: 04/11/17 04:26 Dose: 1 tab Al Hydroxide/Mg Hydroxide (Maalox) 30 ml PO Q8H PRN PRN Reason: Indigestion Albuterol/Ipratropium (Duoneb) 3 ml NEB Q6H PRN PRN Reason: SOB &/or Wheezing Albuterol/Ipratropium (Duoneb) 3 ml NEB [id number] [facility] Last Admin: 04/11/17 10:19 Dose: 3 ml Benzonatate (Tessalon) 100 mg PO Q4H PRN PRN Reason: Cough Last Admin: 04/11/17 02:29 Dose: 100 mg Bisacodyl (Dulcolax) 10 mg PO DAILYPRN PRN PRN Reason: Constipation Cefdinir (Omnicef) 600 mg PO DAILY [facility] Clonidine (Catapres) 0.1 mg PO Q4H PRN PRN Reason: Systolic BP > 180 Diltiazem HCl (Cardizem Cd) 120 mg PO DAILY [facility] Last Admin: 04/11/17 09:48 Dose: 120 mg Fluticasone Propionate (Flonase Nasal [place]) 0 gm NASAL BID [facility] Last Admin: 04/11/17 11:16 Dose: 1 spray Guaifenesin (Robitussin Sf) 200 mg PO Q4H PRN PRN Reason: Cough Last Admin: 04/11/17 02:29 Dose: 200 mg Guaifenesin (Mucinex) 1,200 mg PO Q12HR [facility] Last Admin: 04/11/17 09:48 Dose: 1,200 mg Hydralazine HCl (Apresoline) 10 mg SLOW IVP Q4H PRN PRN Reason: Systolic BP > 180 Ibuprofen (Motrin) 200 mg PO Q6H PRN PRN Reason: FOR FEVER Last Admin: 04/11/17 02:29 Dose: 200 mg Levofloxacin (Levaquin) 750 mg PO 0600 [facility] Loratadine (Claritin) 10 mg PO DAILYPRN PRN PRN Reason: Sinus Symptoms Magnesium Hydroxide (Milk Of Magnesium) 30 ml PO Q8H PRN PRN Reason: Constipation Last Admin: 04/10/17 12:12 Dose: 30 ml Mineral Oil/White Petrolatum (Lacri-Lube Ointment) 0 gm EA EYE PRN PRN PRN Reason: Dry Eyes Nitroglycerin (Nitrostat) 0.4 mg SL Q5MIN PRN PRN Reason: Chest Pain Ondansetron HCl (Zofran) 4 mg IVP Q6H PRN PRN Reason: Nausea/Vomiting Last Admin: 04/10/17 22:06 Dose: 4 mg Pantoprazole Sodium (Protonix) 40 mg PO DAILY [facility] Last Admin: 04/11/17 09:49 Dose: 40 mg Potassium Chloride (K-Dur) 20 meq PO QAM-[facility] Last Admin: 04/11/17 09:48 Dose: 20 meq Saccharomyces Boulardii (Florastor) 250 mg PO DAILY [facility] Last Admin: 04/11/17 09:48 Dose: 250 mg Sodium Chloride (Flush - Normal Saline) 10 ml IVF PRN PRN PRN Reason: Saline Flush Last Admin: 04/10/17 04:01 Dose: 10 ml Sumatriptan Succinate (Imitrex) 50 mg PO DAILYPRN PRN PRN Reason: Migraine Headache Last Admin: 04/04/17 10:53 Dose: 50 mg Topiramate (Topamax) 400 mg PO BID [facility] Last Admin: 04/11/17 09:49 Dose: 400 mg Tramadol HCl (Ultram) 50 mg PO Q4H PRN PRN Reason: Moderate Pain (4-6) Last Admin: 04/11/17 00:44 Dose: 50 mg
[2017-04-11] MEDS: Acyclovir 400 mg Tablet PO SCH (21:38)
[2017-04-12] MEDS: Diabetic Tussin 200 MG/10 ML UDCUP PO PRN (05:09)
[2017-04-12] MEDS: Benzonatate 100 MG CAP PO PRN (05:09)
[2017-04-12] MEDS: HYDROcodone/Acetaminophen 5/325 mg Tablet PO PRN (05:10)
[2017-04-12 06:08] LABS: Anion Gap 12 mmol/L (10-20); BUN (Urea Nitrogen) 9 mg/dL (9.8-20.1); Calc. Creatinine Clearance 85 mL/min (70-130); Calcium 8.8 mg/dL (7.8-10.44); Carbon Dioxide 16 mmol/L (22-29); Chloride 114 mmol/L (98-107); Estimated GFR-MDRD Greater than 90; Glucose 93 mg/dL (70-105); Potassium 3.7 mmol/L (3.5-5.1); Sodium 138 mmol/L (136-145)
[2017-04-12] MEDS ORDERED: Cefdinir 300 MG CAP PO SCH (09:00)
[2017-04-12] MEDS: Saccharomyces boulardii 250 MG CAP PO SCH (09:11)
[2017-04-12] MEDS: Potassium Chloride 20 MEQ TAB PO SCH (09:11)
[2017-04-12] MEDS: Topiramate 100 MG TAB PO SCH (09:11)
[2017-04-12] MEDS: guaiFENesin ER 600 MG TAB PO SCH (09:11)
[2017-04-12] MEDS: Fluticasone Propionate Nasal Spray 16 gm Bottle NASAL SCH (09:12)
--- NOTE | 2017-04-12 09:29 | PDOC.PULPN ---
Progress Note: Subj/Obj - Subjective Date: 04/12/17 Time: 09:27 Narrative: the patient has no complaints - ROS All systems: reviewed and no additional remarkable complaints except as stated - Objective Allergies/Adverse Reactions: Allergies Allergy/AdvReac Type Severity Reaction Status Date / Time Sulfa (Sulfonamide Allergy Verified 04/03/17 21:50 Antibiotics) Medications: Current Medications Acetaminophen (Tylenol Elixir) 650 mg PO Q6H PRN PRN Reason: Fever > 101 or Mild Pain Last Admin: 04/07/17 03:09 Dose: 650 mg Hydrocodone Bitart/Acetaminophen ([place] 5/325) 1 tab PO Q6H PRN PRN Reason: Severe Pain (7-10) Last Admin: 04/12/17 05:10 Dose: 1 tab Acyclovir (Zovirax) 400 mg PO BID [facility] Last Admin: 04/11/17 21:38 Dose: 400 mg Al Hydroxide/Mg Hydroxide (Maalox) 30 ml PO Q8H PRN PRN Reason: Indigestion Albuterol/Ipratropium (Duoneb) 3 ml NEB Q6H PRN PRN Reason: SOB &/or Wheezing Albuterol/Ipratropium (Duoneb) 3 ml NEB [id number] [facility] Last Admin: 04/12/17 08:36 Dose: 3 ml Benzonatate (Tessalon) 100 mg PO Q4H PRN PRN Reason: Cough Last Admin: 04/12/17 05:09 Dose: 100 mg Bisacodyl (Dulcolax) 10 mg PO DAILYPRN PRN PRN Reason: Constipation Cefdinir (Omnicef) 600 mg PO DAILY [facility] Last Admin: 04/12/17 09:11 Dose: 600 mg Clonidine (Catapres) 0.1 mg PO Q4H PRN PRN Reason: Systolic BP > 180 Diltiazem HCl (Cardizem Cd) 120 mg PO DAILY [facility] Last Admin: 04/12/17 09:11 Dose: 120 mg Fluticasone Propionate (Flonase Nasal [place]) 0 gm NASAL BID [facility] Last Admin: 04/12/17 09:12 Dose: 1 spray Guaifenesin (Robitussin Sf) 200 mg PO Q4H PRN PRN Reason: Cough Last Admin: 04/12/17 05:09 Dose: 200 mg Guaifenesin (Mucinex) 1,200 mg PO Q12HR [facility] Last Admin: 04/12/17 09:11 Dose: 1,200 mg Hydralazine HCl (Apresoline) 10 mg SLOW IVP Q4H PRN PRN Reason: Systolic BP > 180 Ibuprofen (Motrin) 200 mg PO Q6H PRN PRN Reason: FOR FEVER Last Admin: 04/11/17 14:57 Dose: 200 mg Levofloxacin (Levaquin) 750 mg PO 0600 [facility] Last Admin: 04/12/17 05:09 Dose: 750 mg Loratadine (Claritin) 10 mg PO DAILYPRN PRN PRN Reason: Sinus Symptoms Magnesium Hydroxide (Milk Of Magnesium) 30 ml PO Q8H PRN PRN Reason: Constipation Last Admin: 04/10/17 12:12 Dose: 30 ml Mineral Oil/White Petrolatum (Lacri-Lube Ointment) 0 gm EA EYE PRN PRN PRN Reason: Dry Eyes Nitroglycerin (Nitrostat) 0.4 mg SL Q5MIN PRN PRN Reason: Chest Pain Ondansetron HCl (Zofran) 4 mg IVP Q6H PRN PRN Reason: Nausea/Vomiting Last Admin: 04/10/17 22:06 Dose: 4 mg Pantoprazole Sodium (Protonix) 40 mg PO DAILY [facility] Last Admin: 04/12/17 09:11 Dose: 40 mg Potassium Chloride (K-Dur) 20 meq PO QAM-WM [facility] Last Admin: 04/12/17 09:11 Dose: 20 meq Saccharomyces Boulardii (Florastor) 250 mg PO DAILY [facility] Last Admin: 04/12/17 09:11 Dose: 250 mg Sodium Chloride (Flush - Normal Saline) 10 ml IVF PRN PRN PRN Reason: Saline Flush Last Admin: 04/10/17 04:01 Dose: 10 ml Sumatriptan Succinate (Imitrex) 50 mg PO DAILYPRN PRN PRN Reason: Migraine Headache Last Admin: 04/04/17 10:53 Dose: 50 mg Topiramate (Topamax) 400 mg PO BID [facility] Last Admin: 04/12/17 09:11 Dose: 400 mg Tramadol HCl (Ultram) 50 mg PO Q4H PRN PRN Reason: Moderate Pain (4-6) Last Admin: 04/11/17 00:44 Dose: 50 mg MAR Reviewed: Yes Vital Signs: Vital Signs Temp 99 F 04/12/17 08:19 Pulse 78 04/12/17 09:11 Resp 16 04/12/17 08:19 BP 106/65 04/12/17 08:00 Pulse Ox 93 L 04/12/17 08:00 Intake & Output 04/11/17 04/12/17 04/12/17 18:59 06:59 18:59 Intake Total 250 Balance 250 Weight 100 lb 14.4 oz 99 lb 3.2 oz Intake: Oral 250 Other: Voiding Method Toilet Toilet Toilet # Unmeasured Voids 4 Progress Note: Exam - Physical Exam Constitutional: NAD HEENT: PERRLA, sclera anicteric Neck: no nodes, no JVD Cardiovascular: RRR Respiratory: clear to auscultation bilaterally Gastrointestinal: soft, non-tender Musculoskeletal: no edema Neurological: non-focal Lymphatic: no nodes Psychiatric: normal affect, A&O x 3 Skin: no rash - Labs Result Diagrams: 04/11/17 04:46 04/12/17 04:41 Lab results: Laboratory Results - last 24 hr 04/12/17 04:41 Sodium 138 Potassium 3.7 Chloride 114 H Carbon Dioxide 16 L Anion Gap 12 BUN 9 L Creatinine 0.55 L Estimated GFR (MDRD) Greater than 90 Glucose 93 Calcium 8.8 Progress Note: A/P - Problems (1) Atrial flutter Current Visit: Yes Status: Acute Code(s): I48.92 - UNSPECIFIED ATRIAL FLUTTER Qualifiers: Atrial flutter type: typical Qualified Code(s): I48.3 - Typical atrial flutter (2) Pneumonia Current Visit: Yes Status: Acute Code(s): J18.9 - PNEUMONIA, UNSPECIFIED ORGANISM Qualifiers: Pneumonia type: due to unspecified organism (3) Sepsis Current Visit: Yes Status: Acute Code(s): A41.9 - SEPSIS, UNSPECIFIED ORGANISM Qualifiers: Sepsis type: sepsis due to unspecified organism Qualified Code(s): A41.9 - Sepsis, unspecified organism (4) Pleural effusion, not elsewhere classified Current Visit: Yes Status: Acute Code(s): J90 - PLEURAL EFFUSION, NOT ELSEWHERE CLASSIFIED - Plan Plan: this patient is ready for discharge. She needs a followup x-ray in my office in about 3-4 weeks. The patient should complete a total of 10-14 days of antibiotics between the hospital and home
[2017-04-12] MEDS: Acyclovir 400 mg Tablet PO SCH (10:25)
[2017-04-12 12:18] VITALS: BP 97/59; TEMP 98.9
--- NOTE | 2017-04-12 13:45 | PDOC.PN ---
- Subjective Encounter Start Date: 04/12/17 Encounter Start Time: 13:44 Subjective: no new complaints.feels weak but better - Objective MAR Reviewed: Yes Vital Signs & Weight: Vital Signs (12 hours) Temp Pulse Resp BP Pulse Ox 04/12/17 11:50 98.9 F 90 20 97/59 L 99 04/12/17 09:11 78 04/12/17 08:19 99 F 78 16 04/12/17 08:00 98.7 F 79 20 106/65 93 L 04/12/17 04:32 99 F 78 16 116/73 98 Weight Admit Weight 106 lb 7.732 oz Weight 99 lb 3.2 oz Most Recent Monitor Data Heart Rate from ECG 93 NIBP 90/58 NIBP BP-Mean 64 Respiration from ECG 23 SpO2 92 I&O: 04/11/17 04/12/17 04/13/17 06:59 06:59 06:59 Intake Total 1200 250 Output Total 950 Balance 250 250 Result Diagrams: 04/11/17 04:46 04/12/17 04:41 Additional Labs: Microbiology 04/10/17 14:01 Stool C. difficile GDH Antigen & Toxins - Final 04/04/17 Unknown Nasopharynx - Nares Influenza Types A,B Direct EIA - Final 04/03/17 23:03 Nasopharyngeal swab Respiratory Virus Panel (PCR) (HENRRY) - Final 04/03/17 21:30 Urine voided Urine Culture - Final NO GROWTH AT 36 HOURS 04/03/17 18:22 Venous blood - Right Arm Blood Culture - Final NO GROWTH IN 5 DAYS 04/03/17 18:22 Venous blood - Left Arm Blood Culture - Final NO GROWTH IN 5 DAYS Phys Exam - Physical Examination Constitutional: NAD HEENT: PERRLA, moist MMs, sclera anicteric, oral pharynx no lesions Neck: no nodes, no JVD, supple, full ROM Respiratory: no wheezing, no rales, no rhonchi, clear to auscultation bilateral Cardiovascular: RRR, no significant murmur Gastrointestinal: soft, non-tender, no distention, positive bowel sounds Musculoskeletal: no edema, pulses present Neurological: non-focal, normal sensation, moves all 4 limbs Psychiatric: normal affect, A&O x 3 Skin: no rash Dx/Plan (1) Fever Code(s): R50.9 - FEVER, UNSPECIFIED Status: Acute Comment: Afebrile for > 24 hours (2) Sepsis Code(s): A41.9 - SEPSIS, UNSPECIFIED ORGANISM Status: Resolved Qualifiers: Sepsis type: sepsis due to unspecified organism Qualified Code(s): A41.9 - Sepsis, unspecified organism (3) Influenza B Code(s): J10.1 - FLU DUE TO OTH IDENT INFLUENZA VIRUS W OTH RESP MANIFEST Status: Acute (4) Atrial flutter Code(s): I48.92 - UNSPECIFIED ATRIAL FLUTTER Status: Acute Qualifiers: Atrial flutter type: typical Qualified Code(s): I48.3 - Typical atrial flutter Comment: NSR on cardiazem (5) Pneumonia Code(s): J18.9 - PNEUMONIA, UNSPECIFIED ORGANISM Status: Acute Qualifiers: Pneumonia type: due to unspecified organism (6) Pleural effusion associated with pulmonary infection Code(s): J18.9 - PNEUMONIA, UNSPECIFIED ORGANISM; J91.8 - PLEURAL EFFUSION IN OTHER CONDITIONS CLASSIFIED ELSEWHERE Status: Acute - Plan continue antibiotics, PT/OT, incentive spirometry, out of bed/ambulate OK to DC .cleared by PCCM.appreciate input.PO ABx -: f/u w PCP and Pulm as an OP. -: will get one set of blood Cx from central line for completion sake before -: removal.follow results w PCP.No cloinical S/S of persistant infection * . Review of Systems - Review of Systems Constitutional: weakness. negative: fever, chills, sweats, malaise, other Respiratory: Cough. negative: Dry, Shortness of Breath, Hemoptysis, SOB with Excertion, Pleuritic Pain, Sputum, Wheezing Cardiovascular: negative: chest pain, palpitations, orthopnea, paroxysmal nocturnal dyspnea, edema, light headedness, other Gastrointestinal: negative: Nausea, Vomiting, Abdominal Pain, Diarrhea, Constipation, Melena, Hematochezia, Other Genitourinary: negative: Dysuria, Frequency, Incontinence, Hematuria, Retention , Other Musculoskeletal: negative: Neck Pain, Shoulder Pain, Arm Pain, Back Pain, Hand Pain, Leg Pain, Foot Pain, Other Neurological: negative: Weakness, Numbness, Incoordination, Change in Speech, Confusion, Seizures, Other - Medications/Allergies Allergies/Adverse Reactions: Allergies Allergy/AdvReac Type Severity Reaction Status Date / Time Sulfa (Sulfonamide Allergy Verified 04/03/17 21:50 Antibiotics) Medications: Current Medications Acetaminophen (Tylenol Elixir) 650 mg PO Q6H PRN PRN Reason: Fever > 101 or Mild Pain Last Admin: 04/07/17 03:09 Dose: 650 mg Hydrocodone Bitart/Acetaminophen ([place] 5/325) 1 tab PO Q6H PRN PRN Reason: Severe Pain (7-10) Last Admin: 04/12/17 05:10 Dose: 1 tab Acyclovir (Zovirax) 400 mg PO BID [facility] Last Admin: 04/12/17 10:25 Dose: 400 mg Al Hydroxide/Mg Hydroxide (Maalox) 30 ml PO Q8H PRN PRN Reason: Indigestion Albuterol/Ipratropium (Duoneb) 3 ml NEB Q6H PRN PRN Reason: SOB &/or Wheezing Albuterol/Ipratropium (Duoneb) 3 ml NEB [id number] [facility] Last Admin: 04/12/17 08:36 Dose: 3 ml Benzonatate (Tessalon) 100 mg PO Q4H PRN PRN Reason: Cough Last Admin: 04/12/17 05:09 Dose: 100 mg Bisacodyl (Dulcolax) 10 mg PO DAILYPRN PRN PRN Reason: Constipation Cefdinir (Omnicef) 600 mg PO DAILY [facility] Last Admin: 04/12/17 09:11 Dose: 600 mg Clonidine (Catapres) 0.1 mg PO Q4H PRN PRN Reason: Systolic BP > 180 Diltiazem HCl (Cardizem Cd) 120 mg PO DAILY [facility] Last Admin: 04/12/17 09:11 Dose: 120 mg Fluticasone Propionate (Flonase Nasal [place]) 0 gm NASAL BID [facility] Last Admin: 04/12/17 09:12 Dose: 1 spray Guaifenesin (Robitussin Sf) 200 mg PO Q4H PRN PRN Reason: Cough Last Admin: 04/12/17 05:09 Dose: 200 mg Guaifenesin (Mucinex) 1,200 mg PO Q12HR [facility] Last Admin: 04/12/17 09:11 Dose: 1,200 mg Hydralazine HCl (Apresoline) 10 mg SLOW IVP Q4H PRN PRN Reason: Systolic BP > 180 Ibuprofen (Motrin) 200 mg PO Q6H PRN PRN Reason: FOR FEVER Last Admin: 04/11/17 14:57 Dose: 200 mg Levofloxacin (Levaquin) 750 mg PO 0600 [facility] Last Admin: 04/12/17 05:09 Dose: 750 mg Loratadine (Claritin) 10 mg PO DAILYPRN PRN PRN Reason: Sinus Symptoms Magnesium Hydroxide (Milk Of Magnesium) 30 ml PO Q8H PRN PRN Reason: Constipation Last Admin: 04/10/17 12:12 Dose: 30 ml Mineral Oil/White Petrolatum (Lacri-Lube Ointment) 0 gm EA EYE PRN PRN PRN Reason: Dry Eyes Nitroglycerin (Nitrostat) 0.4 mg SL Q5MIN PRN PRN Reason: Chest Pain Ondansetron HCl (Zofran) 4 mg IVP Q6H PRN PRN Reason: Nausea/Vomiting Last Admin: 04/10/17 22:06 Dose: 4 mg Pantoprazole Sodium (Protonix) 40 mg PO DAILY [facility] Last Admin: 04/12/17 09:11 Dose: 40 mg Potassium Chloride (K-Dur) 20 meq PO QAM-WM [facility] Last Admin: 04/12/17 09:11 Dose: 20 meq Saccharomyces Boulardii (Florastor) 250 mg PO DAILY [facility] Last Admin: 04/12/17 09:11 Dose: 250 mg Sodium Chloride (Flush - Normal Saline) 10 ml IVF PRN PRN PRN Reason: Saline Flush Last Admin: 04/10/17 04:01 Dose: 10 ml Sumatriptan Succinate (Imitrex) 50 mg PO DAILYPRN PRN PRN Reason: Migraine Headache Last Admin: 04/04/17 10:53 Dose: 50 mg Topiramate (Topamax) 400 mg PO BID [facility] Last Admin: 04/12/17 09:11 Dose: 400 mg Tramadol HCl (Ultram) 50 mg PO Q4H PRN PRN Reason: Moderate Pain (4-6) Last Admin: 04/11/17 00:44 Dose: 50 mg
--- NOTE | 2017-04-12 21:56 | DIS ---
DATE OF ADMISSION: 04/03/2017 DATE OF DISCHARGE: 04/12/2017 PRIMARY CARE PHYSICIAN: None. The patient is instructed to set up appointment with [facility]. DISCHARGE DIAGNOSES: 1. Influenza B. 2. Bronchopneumonia. 3. Sepsis. 4. Atrial flutter, which converted to sinus rhythm. 5. Pleural effusion secondary to pneumonia. 6. Moderate protein-calorie malnutrition. DISCHARGE MEDICATIONS: Mucinex 1200 mg p.o. q.12 hours, Topamax 400 mg p.o. b.i.d., Florastor 250 mg daily, levofloxacin 750 mg p.o. daily for 5 more days, cefdinir 600 mg p.o. daily for 5 more days, C ardizem-CD 120 mg daily, and Dexilant 60 mg p.o. daily. CONSULTATIONS: Inhouse include, 1. Pulmonary, critical care medicine, Dr. Parada. 2. Cardiology, Dr. Douglas. PROCEDURES DONE: 1. In the hospital include CT angio of thorax upon presentation, which is negative for any pulmonary embolism, but shows left lower lobe pneumonia and 5-mm right upper lobe lung nodule. 2. Transthoracic echocardiogram which shows an EF of 60% -65% without any valvular abnormalities. 3. Modified barium swallow, which was unremarkable. 4. Lower extremity ultrasound, which is negative for any DVT. 5. Multiple chest x-rays over the course of her hospitalization. HOSPITAL COURSE: Ms. Arevalo is a 52-year-old female with past medical history of seizures who presen roya to the emergency room with complaints of shortness of breath, cough, fever, and palpitations. e underwent general evaluation including EKG, chest x-ray as well as a CT angiogram of the thorax. S he was found to have left lower lobe pneumonia as well as atrial flutter. She was cardioverted by [facility] emergency room without success. However, she converted to normal sinus rhythm in the ER after rece iving Cardizem and digoxin. She did not have any pulmonary embolism on the CT angiogram. She was st arted on empiric antibiotics and Tamiflu empirically and was admitted for further evaluation and care . Pulmonary medicine as well as Cardiology was consulted. She was somewhat hypotensive upon present ation. Initially, broad-spectrum IV antibiotics were started. Please see admission history and [facility] ical for further details. HOSPITAL COURSE: The patient had gradual improvement in her symptoms on a daily basis. She underwen t extensive blood and urine cultures, which were negative. A respiratory viral panel done by the PCR did confirm presence of influenza B and influenza swab was negative. Echocardiogram was also done g iven her atrial flutter, which was rather within normal limits. She was treated with Cardizem for her atrial fibrillation by Cardiology. She did not have any reoccu rrence while she was here. Eventually, she was stabilized on the low-dose Cardizem. With regards to her pneumonia, pulmonary medicine saw her and eventually her antibiotics were transit ioned to oral and she finished the course of Tamiflu while in the hospital. She had somewhat of a pr olonged hospital course because of extreme weakness, for which she was seen by physical therapist and occupational therapist. Unfortunately, due to patient's insured status: Rehab was not able to be a rranged for her. However, she was able to ambulate in the hallways without any significant help and is now being discharged under the care of her mother. She does not have any PCP locally and is instructed to follow up with one of the [facility] physicia ns, which is agreeable to do. Labs pending at the time of discharge, blood cultures from the central line. She is instructed to fo llow up with PCP for the results. She was seen and examined prior to discharge. Please see hospitalist progress note from today's date for further detail including the [id number] interaction. Total time spent in the discharge of thi s patient 35 minutes.
== END 2017-04-12 14:56 | disposition home or self-care (01) | DRG 871 ==
LOC: ERS 17:32 → CCU 22:34 → 2SE 04-05 18:47
PROVIDERS: ADMIT Internal Medicine; ATTEND Internal Medicine
PROC: 5A2204Z Restoration of Cardiac Rhythm, Single (ICD-10-PCS; principal; 2017-04-03)
PROC: 02HV33Z Insertion of Infusion Device into Superior Vena Cava, Percutaneous Approach (ICD-10-PCS; 2017-04-03)
DX: A41.9 Sepsis, unspecified organism (principal); R65.21 Severe sepsis with septic shock; J91.8 Pleural effusion in other conditions classified elsewhere; J10.00 Influenza due to other identified influenza virus with unspecified type of pneumonia; D69.6 Thrombocytopenia, unspecified; E87.2 Acidosis; J18.9 Pneumonia, unspecified organism; E87.1 Hypo-osmolality and hyponatremia; E83.42 Hypomagnesemia; N39.0 Urinary tract infection, site not specified; J44.0 Chronic obstructive pulmonary disease with (acute) lower respiratory infection; I48.3 Typical atrial flutter; E86.0 Dehydration; G40.909 Epilepsy, unspecified, not intractable, without status epilepticus; I95.2 Hypotension due to drugs; T46.1X5A Adverse effect of calcium-channel blockers, initial encounter; Y92.230 Patient room in hospital as the place of occurrence of the external cause; F41.9 Anxiety disorder, unspecified; F17.210 Nicotine dependence, cigarettes, uncomplicated; Z88.2 Allergy status to sulfonamides; N28.9 Disorder of kidney and ureter, unspecified; E87.6 Hypokalemia; R06.03 Acute respiratory distress; I48.91 Unspecified atrial fibrillation; R51 Headache
CPT/HCPCS: 36415; 36556; 51702; 71045; 71275; 74230; 80048; 80053; 80306; 81003; 81015; 82550; 82553; 83605; 83690; 83735; 83880; 84100; 84439; 84443; 84481; 84484; 85025; 85060; 85379; 87040; 87086; 87324; 87449; 87633; 93005; 93306; 93970; 94640; 94668; 96365; 96367; 96375; 96376; A4216; G8978-GP-CM; G8979-GP-CJ; G8996-GN-CH; G8997-GN-CH; J1160; J1885; J1940; J1956; J2405; J2543; J3010; J3370; J3475; J3480; J7050; J7620